=== PATIENT | female | born 1930 | race Caucasian/White ===

== ENCOUNTER 2017-10-24 02:37 | Inpatient (IN) | payer MEDICARE, MEDICAID ==
--- NOTE | 2017-10-24 03:40 | ED Physician Chart ---
ED Chief Complaint/HPI - Patient Information Date Seen:: 10/24/17 Time Seen:: 03:40 Chief Complaint:: Shortness of breath History of Present Illness:: 87 yo female with history of hypertension, CHF and aortic valve replacement, was brought from [facility] to ER due to shortness of breath for 2 hours. Nitroglycerin 2 puffs were given by paramedics. At ER, patient appeared to be weak with dry cough, tachypnea and SOB. Allergies:: Allergies Allergy/AdvReac Type Severity Reaction Status Date / Time No Known Allergies Allergy Verified 10/24/17 03:21 Vitals:: Vital Signs - 8 hr 10/24/17 02:40 Temp 97.0 F HR 120 RR 30 BP 167/94 O2 Sat % 98 ED Review of Systems - Review of Systems General/Constitutional: No fever, Weakness Skin: No bruising Head: No headache Eyes: No pain ENT: No nasal drainage Neck: No neck pain Cardio Vascular: Chest pain Pulmonary: SOB GI: No nausea, No vomiting Musculoskeletal: No bone or joint pain Neurological: No focal symptoms ED Past Medical History - Past Medical History Past Medical History: HTN, CHF, Other (mitral stenosis) Social History: Non Smoker, No Alcohol, No Drug Use Surgical History: other (aortic valve replacement) Family Medical History - Family Member Mother History Unknown: Yes ED Physical Exam - Physical Examination General/Constitutional: Awake, Alert Head: Atraumatic Eyes: PERRL Skin: No skin lesions ENMT: Nasal exam nl Neck: No nuchal rigidity Other Respiratory comments:: B/L lungs rhonchi Cardio Vascular: RRR, NL S1 S2 Other Cardio Vascular comments:: II/ systolic murmurs GI: No tenderness/rebounding/guarding Extremities: normal strength in all extremities Neuro/Psych: No focal deficits ED Labs/Radiology/EKG Results - Radiology Results Results: CXR: right lower lobe infiltrate and effusion ED Assessment - Assessment General Assessment: Right lower lobe pneumonia Leukocytosis Respiratory acidosis Dehydration CHF Assessment/Comments:: CBC, CMP, BNP, Trop I ABG, CXR, EKG Azithromycin IV Atrovent Neb Admit to ICU for further management ED Septic Shock - . Is Septic Shock (SBP<90, OR Lactate>4 mmol\L) present?: No - <6hrs of presentation: Vital Signs: Vital Signs - 8 hr 01/03/18 02:40 Temp 97.0 F HR 120 RR 30 BP 167/94 O2 Sat % 98 ED Reassessment (Disposition) - Reassessment Reassessment Condition:: Improved - Patient Disposition Discharge/Transfer:: Acute Care w/in this hosp Admitting Medical Physician:: Hilaria Delcid ED Discharge Plan - Patient Disposition Admit/Discharge/Transfer: Acute Care w/in this hosp Condition at Disposition: Stable
[2017-10-24 04:15] LABS: pH 7.28 (7.35-7.45)
[2017-10-24 04:17] LABS: ALLEN TEST Y
[2017-10-24 04:59] LABS: HEMATOCRIT 39.8 % (41.0-60); HEMOGLOBIN 13.3 gm/dL (12-16); MEAN CELL VOLUME 89.4 fl (81-100); MEAN CORPUSCULAR HGB CONC 33.5 pg (28.0-36.0); PLATELET COUNT 386 Th/cmm (150-400); RED BLOOD COUNT 4.45 Mil/cmm (3.80-5.20)
[2017-10-24 05:01] LABS: WHITE BLOOD COUNT 13.6 Th/cmm (4.8-10.8)
[2017-10-24 05:36] LABS: BAND NEUTROPHILE 5 % (0-10); LYMPHOCYTE 4 % (20-50); MONOCYTE 4 % (2-10); NEUTROPHILS 87 % (40-80); TOTAL CELLS COUNTED 100
[2017-10-24 05:43] LABS: ALB/GLOB RATIO 0.9 (1.0-1.8); ALBUMIN 3.8 gm/dL (3.7-5.3); ALKALINE PHOSPHATASE 34 U/L (34-104); ANION GAP 13.7 (7.0-16.0); BILIRUBIN,TOTAL 0.5 mg/dL (0.3-1.0); BUN - UREA NITROGEN 36 mg/dL (7-25); CARBON DIOXIDE 26.4 mEq/L (21.0-31.0); CHLORIDE 102 mEq/L (98-107); CREATININE - SERUM 0.9 mg/dL (0.6-1.2); GLUCOSE 138 mg/dL (70-105); POTASSIUM SERUM 4.1 mEq/L (3.5-5.1); SGOT 15 U/L (13-39); SGPT/ALT 8 U/L (7-52); SODIUM SERUM 138 mEq/L (136-145); TOTAL PROTEIN,SERUM 8.2 gm/dL (6.0-8.3)
[2017-10-24] MEDS ORDERED: Azithromycin 500 MG in Sodium Chloride 0.9% 250 ML IV ONE (07:00)
[2017-10-24] MEDS ORDERED: Albuterol/Ipratropium Neb 3 ML AERS HHN PRN (07:09)
[2017-10-24] MEDS: cefTRIAXone 1 GM in Sodium Chloride 0.9% 50 ML IV SCH (08:02)
[2017-10-24 08:05] LABS: INR 7.13 (0.5-1.4); PROTHROMBIN TIME (TEST) 82.3 SECONDS (9.5-11.5)
--- NOTE | 2017-10-24 08:22 | Diagnostic Imaging Report ---
Exam: Portable chest x-ray HISTORY: Shortness of breath. Findings: Portable examination of the chest at 0752 hours reviewed, no prior studies available comparison. The study demonstrates multiple metallic sutures status post restaurant thoracotomy. Mediastinal structures midline the heart is not enlarged. There is evidence for right lower lobe infiltrate superimposed effusion. Right hemidiaphragm is elevated. Clinical correlation recommended. IMPRESSION: Right lobe infiltrate and effusion, elevation right hemidiaphragm. Clinical correlation recommended. Follow-up examination recommended.
[2017-10-24] MEDS: Azithromycin 500 MG in Sodium Chloride 0.9% 250 ML IV SCH (10:13)
[2017-10-24 11:43] LABS: INR 6.34 (0.5-1.4); PROTHROMBIN TIME (TEST) 72.7 SECONDS (9.5-11.5)
--- NOTE | 2017-10-24 11:52 | History & Physical ---
ADMIT DATE: 10/24/2017 CHIEF COMPLAINT: Acute shortness of breath. HISTORY OF PRESENT ILLNESS: The patient is an 87-year-old female with long history of hypertension, congestive heart failure, severe aortic stenosis, resident of [facility], transferred to the Emergency Room with acute shortness of breath. On arrival, she was evaluated by the ER physician. Initial workup is significant for pneumonia, acute excerebration of CHF, acute respiratory failure. The patient was started on BiPAP, started on IV antibiotic, admitted to the ICU, resume her home medication. Pulmonary consultation and Cardiac consultation obtained. The patient denies any chest pain. PAST MEDICAL HISTORY: Significant for hypertension, CHF, aortic stenosis. PAST SURGICAL HISTORY: No recent surgery. ALLERGIES: None. MEDICATIONS: Follow admission reconciliation. SOCIAL HISTORY: No smoking, alcohol, or drugs. FAMILY HISTORY: Noncontributory. REVIEW OF SYSTEMS: RENAL SYSTEM: No history of chronic renal disorder. CARDIOVASCULAR SYSTEM: She has history of hypertension, CHF, and aortic stenosis. ENDOCRINE SYSTEM: No diabetes or thyroid problem. GASTROINTESTINAL SYSTEM: No upper or lower gastrointestinal bleed. NEUROLOGICAL SYSTEM: No seizure disorder. SKELETOMUSCULAR SYSTEM: No muscular dystrophy. HEMATOLOGICAL SYSTEM: . RESPIRATORY SYSTEM: She has pneumonia, acute respiratory failure. PHYSICAL EXAMINATION: GENERAL: She is awake, alert, and oriented. VITAL SIGNS: Temperature is 98, heart rate 88, blood pressure 124/70. HEENT: Normocephalic. Pupils reactive to light and accommodation. Sclerae clear. NECK: Supple. Negative for lymphadenopathy, JVD, or bruit. CHEST: Entry of air bilaterally diminished. HEART: S1 and S2 normal. ABDOMEN: Soft, bowel sounds positive. EXTREMITIES: No edema. NEUROLOGICAL: She is awake, alert, and oriented. No focal motor or sensory deficits. LABORATORY DATA: White blood cells 13.6, hemoglobin 13.3, hematocrit 39.8, and platelets 386. INR is 7.2. ASSESSMENT: 1. Pneumonia. 2. Acute exacerbation of congestive heart failure. 3. Acute respiratory failure. 4. Severe aortic valve stenosis. PLAN: The patient is admitted to the hospital under Dr. Delcid's service, started on BiPAP. The patient will resume her medication. Dr. Judd Love and Dr. Cantor consulted on the case. The patient is a full code. CBC, CMP, PT, INR in a.m. We hold the Coumadin. JOB# [id number]
[2017-10-24 12:39] LABS: URINE MICROSCOPIC INDICATED? YES; URINE SOURCE CATH
[2017-10-24 12:46] LABS: URINE BILIRUBIN NEGATIVE (NEGATIVE); URINE BLOOD SMALL (NEGATIVE); URINE COLOR YELLOW; URINE GLUCOSE (UA) NEGATIVE (NEGATIVE); URINE KETONE NEGATIVE (NEGATIVE); URINE LEUKOCYTE ESTERASE NEGATIVE (NEGATIVE); URINE NITRATE NEGATIVE (NEGATIVE); URINE PH 5.5 (4.6 - 8.0); URINE PROTEIN NEGATIVE (NEGATIVE); URINE UROBILINOGEN 0.2 E.U./dL (0.2 - 1.0)
[2017-10-24 12:47] LABS: URINE CLARITY CLEAR (CLEAR)
[2017-10-24 12:50] LABS: URINE AMORPHOUS SEDIMENT FEW URATES (NONE SEEN); URINE BACTERIA FEW /hpf (NONE SEEN); URINE EPITHELIAL CELLS FEW /lpf (FEW); URINE WBC 0-2 /hpf (0-5)
[2017-10-24] MEDS ORDERED: Albuterol/Ipratropium Neb 3 ML AERS HHN ONE (13:55)
[2017-10-24 16:48] VITALS: BP 123/66
[2017-10-24] MEDS: Metolazone 5 MG TAB PO SCH (18:23)
[2017-10-24] MEDS: Potassium Chloride 10 mEq ER Tab PO SCH (18:23)
[2017-10-24] MEDS: Nitroglycerin 0.1 mg/hr Tdm TD SCH (18:42)
[2017-10-25] MEDS ORDERED: Diltiazem 5 mg/mL 5mL Vial IVP PRN (00:26)
[2017-10-25] MEDS ORDERED: Diltiazem 5 mg/mL 5mL Vial IVP ONE (00:33)
[2017-10-25] MEDS: Diltiazem 5 mg/mL 5mL Vial IVP PRN ×2 (00:33→05:14)
[2017-10-25] MEDS: cefTRIAXone 1 GM in Sodium Chloride 0.9% 50 ML IV SCH (06:24)
[2017-10-25] MEDS: Azithromycin 500 MG in Sodium Chloride 0.9% 250 ML IV SCH (07:02)
[2017-10-25 07:04] LABS: HEMOGLOBIN 11.7 gm/dL (12-16); MEAN CELL VOLUME 89.4 fl (81-100); MEAN CORPUSCULAR HEMOGLOBIN 30.3 pg (27.0-31.0); MEAN CORPUSCULAR HGB CONC 33.9 pg (28.0-36.0); PLATELET COUNT 351 Th/cmm (150-400); RED BLOOD COUNT 3.87 Mil/cmm (3.80-5.20); RED CELL DISTRIBUTION WIDTH 15.2 % (11.5-20.0)
[2017-10-25 07:07] LABS: HEMATOCRIT 34.6 % (41.0-60); WHITE BLOOD COUNT 8.2 Th/cmm (4.8-10.8)
[2017-10-25 07:29] LABS: ALB/GLOB RATIO 0.9 (1.0-1.8); ALBUMIN 3.7 gm/dL (3.7-5.3); ALKALINE PHOSPHATASE 33 U/L (34-104); ANION GAP 12.6 (7.0-16.0); BILIRUBIN,TOTAL 0.5 mg/dL (0.3-1.0); BUN - UREA NITROGEN 55 mg/dL (7-25); CALCIUM SERUM 9.8 mg/dL (8.6-10.3); CARBON DIOXIDE 30.7 mEq/L (21.0-31.0); CHLORIDE 99 mEq/L (98-107); CREATININE - SERUM 0.8 mg/dL (0.6-1.2); GLUCOSE 176 mg/dL (70-105); POTASSIUM SERUM 3.3 mEq/L (3.5-5.1); SGOT 17 U/L (13-39); SGPT/ALT 11 U/L (7-52); SODIUM SERUM 139 mEq/L (136-145); TOTAL PROTEIN,SERUM 7.9 gm/dL (6.0-8.3)
[2017-10-25 07:30] LABS: PROTHROMBIN TIME (TEST) 45.1 SECONDS (9.5-11.5)
[2017-10-25 08:21] LABS: INR 4.03 (0.5-1.4)
[2017-10-25] MEDS: Multivitamin Tab PO SCH (08:33)
[2017-10-25] MEDS: Metolazone 5 MG TAB PO SCH (08:33)
[2017-10-25] MEDS: Nitroglycerin 0.1 mg/hr Tdm TD SCH (08:34)
[2017-10-25] MEDS: Potassium Chloride 10 mEq ER Tab PO SCH (08:38)
[2017-10-25 08:44] LABS: TOTAL CELLS COUNTED 100
[2017-10-25 08:45] LABS: LYMPHOCYTE 6 % (20-50); MONOCYTE 5 % (2-10); NEUTROPHILS 89 % (40-80); PLATELET ESTIMATE ADEQUATE (NORMAL)
[2017-10-25] MEDS ORDERED: Potassium Chloride 20 mEq ER Tab PO ONE ×2 (12:19→12:42)
[2017-10-25] MEDS: Albuterol/Ipratropium Neb 3 ML AERS HHN PRN (19:35)
--- NOTE | 2017-10-25 22:18 | Internal Medicine Prog Note ---
Internal Medicine Subjective - Subjective Service Date: 10/25/17 Patient seen and examined:: with staff Patient is:: asleep, in bed Patient Complaints of:: congestion Per staff patient has:: no adverse event Internal Medicine Objective - Results Result Diagrams: 10/25/17 06:16 10/25/17 06:16 Recent Labs: Laboratory Last Values WBC 8.2 Th/cmm (4.8-10.8) D 10/25/17 06:16 RBC 3.87 Mil/cmm (3.80-5.20) 10/25/17 06:16 Hgb 11.7 gm/dL (12-16) L 10/25/17 06:16 Hct 34.6 % (41.0-60) L D 10/25/17 06:16 MCV 89.4 fl (81-100) 10/25/17 06:16 MCH 30.3 pg (27.0-31.0) 10/25/17 06:16 MCHC Differential 33.9 pg (28.0-36.0) 10/25/17 06:16 RDW 15.2 % (11.5-20.0) 10/25/17 06:16 Plt Count 351 Th/cmm (150-400) 10/25/17 06:16 MPV 9.0 fl 10/25/17 06:16 Band Neutrophils % 5 % (0-10) 10/24/17 04:30 Neutrophils (Manual) 89 % (40-80) H 10/25/17 06:16 Lymphocytes 6 % (20-50) L 10/25/17 06:16 Monocytes 5 % (2-10) 10/25/17 06:16 Platelet Estimate ADEQUATE (NORMAL) 10/25/17 06:16 PT 45.1 SECONDS (9.5-11.5) H 10/25/17 06:16 INR 4.03 (0.5-1.4) H* D 10/25/17 06:16 PTT (Actin FS) 47.8 SECONDS (26.0-38.0) H 10/24/17 10:45 Specimen Source arterial 10/24/17 03:58 Sample Site Left Radial 10/24/17 03:58 pH 7.28 (7.35-7.45) L 10/24/17 03:58 pCO2 64.0 mmHg (35.0-45.0) H* 10/24/17 03:58 pO2 250.0 mmHg (80.0-100.0) H 10/24/17 03:58 HCO3 26.0 mEq/L (20.0-26.0) 10/24/17 03:58 Base Excess 2.0 mEq/L (-3.0-3.0) 10/24/17 03:58 O2 Saturation 100.0 % (92.0-100.0) 10/24/17 03:58 Jerry Test Y 10/24/17 03:58 Vent Rate N/A 10/24/17 03:58 Inspired O2 100 10/24/17 03:58 Tidal Volume N/A 10/24/17 03:58 PEEP N/A 10/24/17 03:58 Pressure (ins/psv/peep) N/A 10/24/17 03:58 Critical Value O.LAUREN 10/24/17 03:58 Sodium 139 mEq/L (136-145) 10/25/17 06:16 Potassium 3.3 mEq/L (3.5-5.1) L 10/25/17 06:16 Chloride 99 mEq/L (98-107) 10/25/17 06:16 Carbon Dioxide 30.7 mEq/L (21.0-31.0) 10/25/17 06:16 Anion Gap 12.6 (7.0-16.0) 10/25/17 06:16 BUN 55 mg/dL (7-25) H 10/25/17 06:16 Creatinine 0.8 mg/dL (0.6-1.2) 10/25/17 06:16 Est GFR ( Amer) TNP 10/25/17 06:16 Est GFR (Non-Af Amer) TNP 10/25/17 06:16 BUN/Creatinine Ratio 68.8 10/25/17 06:16 Glucose 176 mg/dL (70-105) H 10/25/17 06:16 Whole Bld Lactic Acid 1.95 mmol/L (0.60-1.99) 10/24/17 04:30 Calcium 9.8 mg/dL (8.6-10.3) 10/25/17 06:16 Total Bilirubin 0.5 mg/dL (0.3-1.0) 10/25/17 06:16 AST 17 U/L (13-39) 10/25/17 06:16 ALT 11 U/L (7-52) 10/25/17 06:16 Alkaline Phosphatase 33 U/L (34-104) L 10/25/17 06:16 Troponin I 0.19 ng/mL (0.01-0.05) H* 10/24/17 04:30 B-Natriuretic Peptide 3350.0 pg/mL (5.0-100.0) H 10/24/17 04:30 Total Protein 7.9 gm/dL (6.0-8.3) 10/25/17 06:16 Albumin 3.7 gm/dL (3.7-5.3) 10/25/17 06:16 Globulin 4.2 gm/dL 10/25/17 06:16 Albumin/Globulin Ratio 0.9 (1.0-1.8) L 10/25/17 06:16 Urine Source CATH 10/24/17 12:05 Urine Color YELLOW 10/24/17 12:05 Urine Clarity CLEAR (CLEAR) 10/24/17 12:05 Urine pH 5.5 (4.6 - 8.0) 10/24/17 12:05 Ur Specific [place] 1.025 (1.005-1.030) 10/24/17 12:05 Urine Protein NEGATIVE mg/dL (NEGATIVE) 10/24/17 12:05 Urine Glucose (UA) NEGATIVE mg/dL (NEGATIVE) 10/24/17 12:05 Urine Ketones NEGATIVE mg/dL (NEGATIVE) 10/24/17 12:05 Urine Blood SMALL (NEGATIVE) H 10/24/17 12:05 Urine Nitrate NEGATIVE (NEGATIVE) 10/24/17 12:05 Urine Bilirubin NEGATIVE (NEGATIVE) 10/24/17 12:05 Urine Urobilinogen 0.2 E.U./dL (0.2 - 1.0) 10/24/17 12:05 Ur Leukocyte Esterase NEGATIVE (NEGATIVE) 10/24/17 12:05 Urine RBC 2-5 /hpf (0-5) 10/24/17 12:05 Urine WBC 0-2 /hpf (0-5) 10/24/17 12:05 Ur Epithelial Cells FEW /lpf (FEW) 10/24/17 12:05 Amorphous Sediment FEW URATES (NONE SEEN) 10/24/17 12:05 Urine Bacteria FEW /hpf (NONE SEEN) 10/24/17 12:05 - Physical Exam Vitals and I&O: Vital Signs Temp 95.6 F 10/25/17 20:00 Pulse 67 10/25/17 21:00 Resp 26 10/25/17 21:00 BP 127/63 10/25/17 21:00 Pulse Ox 100 10/25/17 21:00 Intake & Output 10/25/17 10/25/17 10/26/17 06:59 18:59 06:59 Intake Total 440 490 Output Total 800 1000 Balance -360 -510 Weight (lbs) 50.258 kg 49.668 kg Intake: Intake, IV Amount 50 250 Azithromycin 500 mg In 250 Sodium Chloride 0.9% 250 ml @ 250 mls/hr IV Q24HR [facility] Rx#:[id number] cefTRIAXone 1 gm In 50 Sodium Chloride 0.9% 50 ml @ 100 mls/hr IV Q24HR [facility] Rx#:[id number] Oral 390 240 Output: Urine 800 1000 Active Medications: Current Medications Acetaminophen (Tylenol) 650 mg PO Q6HR PRN PRN Reason: Pain or Fever >101 Stop: 12/23/17 09:54 Last Admin: 10/25/17 15:14 Dose: 650 mg Albuterol/Ipratropium (Duoneb Neb) 3 ml HHN Q4HRT PRN PRN Reason: Shortness of Breath Stop: 12/23/17 07:08 Last Admin: 10/25/17 19:35 Dose: 3 ml Calcium Carbonate (Tums) 500 mg PO DAILY [facility] Stop: 12/24/17 08:59 Last Admin: 10/25/17 08:33 Dose: 500 mg Cholecalciferol (Vitamin D3) 1,000 iu PO DAILY [facility] Stop: 12/24/17 08:59 Last Admin: 10/25/17 08:33 Dose: 1,000 iu Diltiazem HCl (Cardizem) 20 mg IVP Q4H PRN PRN Reason: HR above 110 Stop: 12/24/17 00:29 Last Admin: 10/25/17 05:14 Dose: 20 mg Docusate Sodium (Colace) 100 mg PO DAILY [facility] Stop: 12/24/17 08:59 Last Admin: 10/25/17 08:33 Dose: 100 mg Donepezil HCl (Aricept) 10 mg PO HS [facility] Stop: 12/23/17 20:59 Last Admin: 10/25/17 21:04 Dose: 10 mg Furosemide (Lasix) 40 mg IVP BID [facility] Stop: 12/24/17 16:59 Last Admin: 10/25/17 17:02 Dose: 40 mg Azithromycin 500 mg/ Sodium (Chloride) 250 mls @ 250 mls/hr IV Q24HR [facility] Stop: 12/23/17 07:14 Last Infusion: 10/25/17 08:02 Dose: Infused Ceftriaxone Sodium 1 gm/ (Sodium Chloride) 50 mls @ 100 mls/hr IV Q24HR [facility] Stop: 12/23/17 07:14 Last Infusion: 10/25/17 06:54 Dose: Infused Metolazone (Zaroxolyn) 5 mg PO DAILY [facility] Stop: 12/23/17 15:59 Last Admin: 10/25/17 08:33 Dose: 5 mg Mirtazapine (Remeron) 7.5 mg PO HS [facility] PRN Reason: Protocol Stop: 12/23/17 20:59 Last Admin: 10/25/17 21:04 Dose: 7.5 mg Multivitamins/Vitamin C (Theragran) 1 tab PO DAILY [facility] Stop: 12/24/17 08:59 Last Admin: 10/25/17 08:33 Dose: 1 tab Nitroglycerin (Transderm-Nitro) 1 patch TD DAILY [facility] Stop: 12/23/17 15:59 Last Admin: 10/25/17 08:34 Dose: 1 patch Potassium Chloride (Klor-Con) 10 meq PO DAILY [facility] Stop: 12/23/17 15:59 Last Admin: 10/25/17 08:38 Dose: 10 meq Sotalol HCl (Betapace) 40 mg PO BID [facility] Stop: 12/23/17 16:59 Last Admin: 10/25/17 17:01 Dose: 40 mg General: weak, thin HEENT: NC/AT, PERRLA, EOMI, anicteric sclerae, throat clear Neck: + JVD Lungs: CTAB Abdomen: soft, non-tender, non-distended Extremities: clear Neurological: no change - Procedures Procedures: Procedures Procedure Code Date ASSISTANCE WITH RESPIRATORY VENTILATION, <24 HRS, CPAP [id number] 10/24/17 POS AIRWAY PRESSURE CPAP 56892 10/24/17 Internal Medicine Assmt/Plan - Assessment Assessment: 1.ACUTE EXACERBATION OF CHF' 2.PNEUMONIA. 3.SEVER AORTIC VALVE STENOSIS. - Plan Plan: CONTINUE ON CURRENT MEDICATION AND DIET.I CALLED FOR TRANSFER. Nutritional Asmnt/Malnutr-PDOC - Dietary Evaluation Malnutrition Findings (Please click <Entered> for more info): Nutritional Asmnt/Malnutrition Start: 10/25/17 15: 34 Text: Status: Complete Freq: Document 10/25/17 15:34 KELLI (Rec: 10/25/17 15:45 HEN [email or web address]) Nutritional Asmnt/Malnutrition Patient General Information Nutritional Screening High Risk Consult Diagnosis acute CHF, PNA Pertinent Medical Hx/Surgical Hx HTN, CHF, aortic stenosis Subjective Information Consult received for poor appetite. Pt seen lying in bed , awake, does not speak Bulgarian. Family at bedside, reported pt has had poor appetite for a week, consumed few bites of breakfast this morning, denied chewing problem, pt used to drink Ensure daily. Per notes, PO intake 25% of dinner 10/25. Pt is on Remeron noted. Current Diet Order/ Nutrition Support Cardiac Pertinent Medications Tums, azithromycin, vitamin D3 , colace, lasix, remeron, theragran, kcl Pertinent Labs 10/25 na 139, K 3.3, Cl 99, BUN 55, Cr 0.8, Glucose 176, Alb 3 .7 Nutritional Hx/Data Height 1.52 m Height (Calculated Centimeters) 152.4 Current Weight (lbs) 50.258 kg Weight (Calculated Kilograms) 50.3 Weight (Calculated Grams) 78983.0 Bow Body Weight 100 % Bow Body Weight 111 Body Mass Index (BMI) 21.6 Recent Weight Change No Weight Status Approriate GI Symptoms GI Symptoms None Last BM no record Difficult in: None Usual diet at home see subjective information Skin Integrity/Comment: rash to perinuem, buttocks and lower back edema Estimated Nutritional Goals BEE in Kcals: Using Current wt Calories/Kcals/Kg 25-30 Kcals Calculated 0723-0579 Protein: Using Current wt Protein g/k-1.2 Protein Calculated 50-60 Fluid: ml [id number] or per MD d/t CHF Nutritional Problem 1. Problem Problem inadequate food intake Etiology poor appetite Signs/Symptoms: PO intake <25% Malnutrition Alert Protein-Calorie Malnutrition N/A Is there a minimum of two criteria No selected? Query Text:Check all the applicable criteria. A minimum of two criteria are recommended for diagnosis of either severe or non-severe malnutrition. Intervention/Recommendation Comments 1. Recommend Boost BID to increased nutrition intake. Family would like to try this supplement. RN notified. 2. Monitor PO intake, wt, labs and skin integrity 3. F/U as high risk in 2-3 days, 10/27-10/28 Expected Outcomes/Goals Expected Outcomes/Goals 1. PO intake to meet at least 75% of nutritional needs. 2. Wt stability, skin to remain intact, labs to approach WNL.
--- NOTE | 2017-10-25 23:21 | Consultation ---
DATE OF CONSULTATION: 10/25/[address] Delcid for this consultation. HISTORY OF PRESENT ILLNESS: This is an 87-year-old female who apparently has history of aortic valve replacement, history of mitral valve stenosis and is being treated as an outpatient for cough, congestion, and possible bronchitis and pneumonia. She was getting more short of breath and admitted for treatment and management of her pneumonia, in no apparent distress. She has history of hypertension and CHF. PAST MEDICAL HISTORY: As above. SOCIAL HISTORY: No smoking or drinking. PHYSICAL EXAMINATION: GENERAL: Awake, alert, not in acute distress. VITAL SIGNS: Temperature is 97.2, pulse 82, respirations are 24, blood pressure 134/67, and saturation is 95% on 4 liters oxygen. HEENT: Atraumatic and normocephalic. Pupils are equal to light and accommodation. Ears, nose and throat normal. NECK: Supple. No JVD. CHEST: There are decreased breath sounds right base, few rhonchi bilaterally. HEART: Regular rhythm. ABDOMEN: Soft. EXTREMITIES: No edema. Lower extremities are cold and mottled. LABORATORY DATA: Chest x-ray, right lower lobe infiltrate and elevated right hemidiaphragm. WBCs are 8.2 down from 13.6, hemoglobin 11.7. INR is 4.0. Sodium 139, potassium 3.3, BUN is 55, and creatinine 0.8. IMPRESSION: This is an 87-year-old female with, 1. Pneumonia. 2. Hypoxemia. 3. Valvular heart disease. 4. Seizure versus rule out any aortic aneurysm thoracic or specifically abdominal causing the lower extremity symptoms. Thank you very much Dr. Delcid. I have discussed with family at bedside in details. JOB# [id number] [email or web address]
[2017-10-26 05:56] LABS: BUN - UREA NITROGEN 61 mg/dL (7-25); CALCIUM SERUM 9.9 mg/dL (8.6-10.3); CARBON DIOXIDE 37.3 mEq/L (21.0-31.0); CHLORIDE 98 mEq/L (98-107); CREATININE - SERUM 0.7 mg/dL (0.6-1.2); GLUCOSE 141 mg/dL (70-105); POTASSIUM SERUM 3.3 mEq/L (3.5-5.1); SODIUM SERUM 142 mEq/L (136-145)
[2017-10-26] MEDS: cefTRIAXone 1 GM in Sodium Chloride 0.9% 50 ML IV SCH (06:21)
[2017-10-26] MEDS: Azithromycin 500 MG in Sodium Chloride 0.9% 250 ML IV SCH (07:06)
--- NOTE | 2017-10-26 08:06 | Diagnostic Imaging Report ---
CT Chest without IV contrast HISTORY: Aneurysm COMPARISON: Chest x-ray on 10/24/2017. Technique: Axial images were obtained from the base of the neck to the upper abdomen without IV contrast. Reconstructions were made. Total DLP 188 CTD I 5.2 Findings: Assessment of the mediastinum is limited due to lack of IV contrast. The ascending aorta is ectatic measuring up to 3.5 cm. No evidence of an aneurysm. No evidence of mediastinal lymphadenopathy. Mild cardiomegaly is noted with atherosclerotic vascular disease and mitral valve calcifications. There is also evidence of prior median sternotomy. There is evidence of prior aortic valve repair. No pericardial effusion identified. Evaluation of the lungs demonstrates evidence of right lower lobe collapse with endobronchial filling within these regions. Small right effusion is noted. A few adjacent nodular infiltrates are noted. Additional mild hypoventilatory atelectatic changes of the lungs are seen. Left lower lobe nodular infiltrates are also noted measuring up to 6 mm. Advanced degenerative changes of the spine are noted. IMPRESSION: Right lower lobe collapse and small right effusion. There is also filling of the right lower lobe bronchi. This may be due to underlying secretions, however, other endobronchial lesions cannot be excluded. Clinical correlation and follow-up is recommended. Additional nodular infiltrates along the lung bases, left greater than right, which favor infectious process , however, short-term follow-up is recommended to ensure resolution and rule out neoplastic process The ascending aorta measures up to 3.5 cm. No evidence of an aortic aneurysm. Diffuse atherosclerotic vascular disease is noted. Evidence of prior median sternotomy. There is also evidence of previous aortic valve repair.
--- NOTE | 2017-10-26 08:09 | Diagnostic Imaging Report ---
CT scan abdomen and pelvis without intravenous contrast HISTORY: Pain, aortic aneurysm Total DLP equals 384 CTDI equals 8.5 Axial sections were obtained from the xiphoid process down to the pubic symphysis. See separate earlier chest CT report for description of intrathoracic pathology. The overall exam is somewhat limited due to patient motion. The liver exhibits a homogeneous parenchyma. No focal lesions. The spleen appears normal. Intraluminal density seen within the gallbladder consistent with cholelithiasis. Question. Cholecystic fluid. Findings consistent with bilateral renal calculi are noted. The largest in the right kidney measures approximately 6 mm. The largest within the left kidney measures approximately 8 mm. No hydronephrosis. There is an approximate 2.2 cm well-circumscribed hypodense right adrenal lesion. Density measurements are consistent with a benign etiology. Evaluation of the pelvis is limited due to artifact associated with bilateral hip arthroplasties. No obvious abnormal soft tissue masses. No abnormal fluid collections. There is a mild to moderately distended stool-filled rectum. No associated bowel dilatation. Atherosclerotic vascular calcification noted within the aorta. However, no aneurysm is seen. Degenerative changes noted throughout the spine. IMPRESSION: 1. Limited exam due to patient motion 2. Cholelithiasis. Questionable pericholecystic fluid. 3. Right adrenal lesion. Density measurements are consistent with benign etiology. 4. Bilateral renal calculi. No hydronephrosis 5. Atherosclerotic vascular changes. However, no aortic aneurysm is identified. 6. Bilateral hip replacements 7. Mildly distended stool-filled rectum. Findings may be associated with a fecal impaction.
[2017-10-26] MEDS ORDERED: Albuterol/Ipratropium Neb 3 ML AERS HHN ONE (08:52)
[2017-10-26] MEDS: Albuterol/Ipratropium Neb 3 ML AERS HHN PRN ×2 (08:53→18:09)
[2017-10-26] MEDS: Metolazone 5 MG TAB PO SCH (08:53)
[2017-10-26] MEDS: Multivitamin Tab PO SCH (08:54)
[2017-10-26] MEDS: Nitroglycerin 0.1 mg/hr Tdm TD SCH ×2 (08:54→09:01)
[2017-10-26] MEDS: Potassium Chloride 10 mEq ER Tab PO SCH (08:55)
[2017-10-26] MEDS: Diltiazem 5 mg/mL 5mL Vial IVP PRN ×2 (10:04→17:16)
--- NOTE | 2017-10-26 13:10 | Internal Medicine Prog Note ---
Internal Medicine Subjective - Subjective Service Date: 10/26/17 Patient seen and examined:: with staff (she feels better,less sob) Patient is:: asleep, in bed Patient Complaints of:: congestion Per staff patient has:: no adverse event Internal Medicine Objective - Results Result Diagrams: 10/25/17 06:16 10/26/17 05:03 Recent Labs: Laboratory Last Values WBC 8.2 Th/cmm (4.8-10.8) D 10/25/17 06:16 RBC 3.87 Mil/cmm (3.80-5.20) 10/25/17 06:16 Hgb 11.7 gm/dL (12-16) L 10/25/17 06:16 Hct 34.6 % (41.0-60) L D 10/25/17 06:16 MCV 89.4 fl (81-100) 10/25/17 06:16 MCH 30.3 pg (27.0-31.0) 10/25/17 06:16 MCHC Differential 33.9 pg (28.0-36.0) 10/25/17 06:16 RDW 15.2 % (11.5-20.0) 10/25/17 06:16 Plt Count 351 Th/cmm (150-400) 10/25/17 06:16 MPV 9.0 fl 10/25/17 06:16 Band Neutrophils % 5 % (0-10) 10/24/17 04:30 Neutrophils (Manual) 89 % (40-80) H 10/25/17 06:16 Lymphocytes 6 % (20-50) L 10/25/17 06:16 Monocytes 5 % (2-10) 10/25/17 06:16 Platelet Estimate ADEQUATE (NORMAL) 10/25/17 06:16 PT 45.1 SECONDS (9.5-11.5) H 10/25/17 06:16 INR 4.03 (0.5-1.4) H* D 10/25/17 06:16 PTT (Actin FS) 47.8 SECONDS (26.0-38.0) H 10/24/17 10:45 Specimen Source arterial 10/24/17 03:58 Sample Site Left Radial 10/24/17 03:58 pH 7.28 (7.35-7.45) L 10/24/17 03:58 pCO2 64.0 mmHg (35.0-45.0) H* 10/24/17 03:58 pO2 250.0 mmHg (80.0-100.0) H 10/24/17 03:58 HCO3 26.0 mEq/L (20.0-26.0) 10/24/17 03:58 Base Excess 2.0 mEq/L (-3.0-3.0) 10/24/17 03:58 O2 Saturation 100.0 % (92.0-100.0) 10/24/17 03:58 Jerry Test Y 10/24/17 03:58 Vent Rate N/A 10/24/17 03:58 Inspired O2 100 10/24/17 03:58 Tidal Volume N/A 10/24/17 03:58 PEEP N/A 10/24/17 03:58 Pressure (ins/psv/peep) N/A 10/24/17 03:58 Critical Value O.LAUREN 10/24/17 03:58 Sodium 142 mEq/L (136-145) 10/26/17 05:03 Potassium 3.3 mEq/L (3.5-5.1) L 10/26/17 05:03 Chloride 98 mEq/L (98-107) 10/26/17 05:03 Carbon Dioxide 37.3 mEq/L (21.0-31.0) H 10/26/17 05:03 Anion Gap 10.0 (7.0-16.0) 10/26/17 05:03 BUN 61 mg/dL (7-25) H 10/26/17 05:03 Creatinine 0.7 mg/dL (0.6-1.2) 10/26/17 05:03 Est GFR ( Amer) TNP 10/26/17 05:03 Est GFR (Non-Af Amer) TNP 10/26/17 05:03 BUN/Creatinine Ratio 87.1 10/26/17 05:03 Glucose 141 mg/dL (70-105) H 10/26/17 05:03 Whole Bld Lactic Acid 1.95 mmol/L (0.60-1.99) 10/24/17 04:30 Calcium 9.9 mg/dL (8.6-10.3) 10/26/17 05:03 Total Bilirubin 0.5 mg/dL (0.3-1.0) 10/25/17 06:16 AST 17 U/L (13-39) 10/25/17 06:16 ALT 11 U/L (7-52) 10/25/17 06:16 Alkaline Phosphatase 33 U/L (34-104) L 10/25/17 06:16 Troponin I 0.19 ng/mL (0.01-0.05) H* 10/24/17 04:30 B-Natriuretic Peptide 3030.0 pg/mL (5.0-100.0) H 10/26/17 05:03 Total Protein 7.9 gm/dL (6.0-8.3) 10/25/17 06:16 Albumin 3.7 gm/dL (3.7-5.3) 10/25/17 06:16 Globulin 4.2 gm/dL 10/25/17 06:16 Albumin/Globulin Ratio 0.9 (1.0-1.8) L 10/25/17 06:16 Urine Source CATH 10/24/17 12:05 Urine Color YELLOW 10/24/17 12:05 Urine Clarity CLEAR (CLEAR) 10/24/17 12:05 Urine pH 5.5 (4.6 - 8.0) 10/24/17 12:05 Ur Specific [place] 1.025 (1.005-1.030) 10/24/17 12:05 Urine Protein NEGATIVE mg/dL (NEGATIVE) 10/24/17 12:05 Urine Glucose (UA) NEGATIVE mg/dL (NEGATIVE) 10/24/17 12:05 Urine Ketones NEGATIVE mg/dL (NEGATIVE) 10/24/17 12:05 Urine Blood SMALL (NEGATIVE) H 10/24/17 12:05 Urine Nitrate NEGATIVE (NEGATIVE) 10/24/17 12:05 Urine Bilirubin NEGATIVE (NEGATIVE) 10/24/17 12:05 Urine Urobilinogen 0.2 E.U./dL (0.2 - 1.0) 10/24/17 12:05 Ur Leukocyte Esterase NEGATIVE (NEGATIVE) 10/24/17 12:05 Urine RBC 2-5 /hpf (0-5) 10/24/17 12:05 Urine WBC 0-2 /hpf (0-5) 10/24/17 12:05 Ur Epithelial Cells FEW /lpf (FEW) 10/24/17 12:05 Amorphous Sediment FEW URATES (NONE SEEN) 10/24/17 12:05 Urine Bacteria FEW /hpf (NONE SEEN) 10/24/17 12:05 - Physical Exam Vitals and I&O: Vital Signs Temp 96.1 F 10/26/17 12:00 Pulse 63 10/26/17 12:00 Resp 24 10/26/17 12:00 BP 99/69 10/26/17 11:00 Pulse Ox 99 10/26/17 11:00 Intake & Output 10/25/17 10/26/17 10/26/17 18:59 06:59 18:59 Intake Total 490 100 Output Total 1000 440 Balance -510 -340 Weight (lbs) 49.668 kg 49.26 kg Intake: Intake, IV Amount 250 50 Azithromycin 500 mg In 250 Sodium Chloride 0.9% 250 ml @ 250 mls/hr IV Q24HR [facility] Rx#:[id number] cefTRIAXone 1 gm In 50 Sodium Chloride 0.9% 50 ml @ 100 mls/hr IV Q24HR [facility] Rx#:[id number] Oral 240 50 Output: Urine 1000 440 Other: # Bowel Movements 0 Active Medications: Current Medications Acetaminophen (Tylenol) 650 mg PO Q6HR PRN PRN Reason: Pain or Fever >101 Stop: 12/23/17 09:54 Last Admin: 10/26/17 08:58 Dose: 650 mg Albuterol/Ipratropium (Duoneb Neb) 3 ml HHN Q4HRT PRN PRN Reason: Shortness of Breath Stop: 12/23/17 07:08 Last Admin: 10/26/17 08:53 Dose: 3 ml Alprazolam (Xanax) 0.25 mg PO BID [facility] PRN Reason: Protocol Stop: 12/25/17 16:59 Calcium Carbonate (Tums) 500 mg PO DAILY [facility] Stop: 12/24/17 08:59 Last Admin: 10/26/17 08:52 Dose: 500 mg Cholecalciferol (Vitamin D3) 1,000 iu PO DAILY [facility] Stop: 12/24/17 08:59 Last Admin: 10/26/17 08:52 Dose: 1,000 iu Diltiazem HCl (Cardizem) 20 mg IVP Q4H PRN PRN Reason: HR above 110 Stop: 12/24/17 00:29 Last Admin: 10/26/17 10:04 Dose: 20 mg Docusate Sodium (Colace) 100 mg PO DAILY [facility] Stop: 12/24/17 08:59 Last Admin: 10/26/17 08:52 Dose: 100 mg Donepezil HCl (Aricept) 10 mg PO HS [facility] Stop: 12/23/17 20:59 Last Admin: 10/25/17 21:04 Dose: 10 mg Furosemide (Lasix) 40 mg IVP BID [facility] Stop: 12/24/17 16:59 Last Admin: 10/26/17 08:52 Dose: 40 mg Azithromycin 500 mg/ Sodium (Chloride) 250 mls @ 250 mls/hr IV Q24HR [facility] Stop: 12/23/17 07:14 Last Admin: 10/26/17 07:06 Dose: 250 mls/hr Ceftriaxone Sodium 1 gm/ (Sodium Chloride) 50 mls @ 100 mls/hr IV Q24HR [facility] Stop: 12/23/17 07:14 Last Infusion: 10/26/17 06:51 Dose: Infused Metolazone (Zaroxolyn) 5 mg PO DAILY [facility] Stop: 12/23/17 15:59 Last Admin: 10/26/17 08:53 Dose: 5 mg Mirtazapine (Remeron) 7.[address] [facility] PRN Reason: Protocol Stop: 12/23/17 20:59 Last Admin: 10/25/17 21:04 Dose: 7.5 mg Multivitamins/Vitamin C (Theragran) 1 tab PO DAILY [facility] Stop: 12/24/17 08:59 Last Admin: 10/26/17 08:54 Dose: 1 tab Nitroglycerin (Transderm-Nitro) 1 patch TD DAILY [facility] Stop: 12/23/17 15:59 Last Admin: 10/26/17 09:01 Dose: 1 patch Potassium Chloride (Klor-Con) 10 meq PO DAILY [facility] Stop: 12/23/17 15:59 Last Admin: 10/26/17 08:55 Dose: 10 meq Sotalol HCl (Betapace) 40 mg PO BID [facility] Stop: 12/23/17 16:59 Last Admin: 10/26/17 08:55 Dose: 40 mg General: weak, thin HEENT: NC/AT, PERRLA, EOMI, anicteric sclerae, throat clear Neck: + JVD Lungs: CTAB Abdomen: soft, non-tender, non-distended Extremities: clear Neurological: no change - Procedures Procedures: Procedures Procedure Code Date ASSISTANCE WITH RESPIRATORY VENTILATION, <24 HRS, CPAP [id number] 10/24/17 POS AIRWAY PRESSURE CPAP 45264 10/24/17 Internal Medicine Assmt/Plan - Assessment Assessment: 1.ACUTE EXACERBATION OF CHF' 2.PNEUMONIA. 3.SEVER AORTIC VALVE STENOSIS. - Plan Plan: CONTINUE ON CURRENT MEDICATION AND DIET.she can be transferred to by acls if bed is available. Nutritional Asmnt/Malnutr-PDOC - Dietary Evaluation Malnutrition Findings (Please click <Entered> for more info): Nutritional Asmnt/Malnutrition Start: 10/25/17 15: 34 Text: Status: Complete Freq: Document 10/25/17 15:34 ALYSON (Rec: 10/25/17 15:45 ALYSON [id number]) Nutritional Asmnt/Malnutrition Patient General Information Nutritional Screening High Risk Consult Diagnosis acute CHF, PNA Pertinent Medical Hx/Surgical Hx HTN, CHF, aortic stenosis Subjective Information Consult received for poor appetite. Pt seen lying in bed , awake, does not speak Pashto. Family at bedside, reported pt has had poor appetite for a week, consumed few bites of breakfast this morning, denied chewing problem, pt used to drink Ensure daily. Per notes, PO intake 25% of dinner 10/25. Pt is on Remeron noted. Current Diet Order/ Nutrition Support Cardiac Pertinent Medications Tums, azithromycin, vitamin D3 , colace, lasix, remeron, theragran, kcl Pertinent Labs 10/25 na 139, K 3.3, Cl 99, BUN 55, Cr 0.8, Glucose 176, Alb 3 .7 Nutritional Hx/Data Height 1.52 m Height (Calculated Centimeters) 152.4 Current Weight (lbs) 50.258 kg Weight (Calculated Kilograms) 50.3 Weight (Calculated Grams) 17276.0 [place] Body Weight 100 % [place] Body Weight 111 Body Mass Index (BMI) 21.6 Recent Weight Change No Weight Status Approriate GI Symptoms GI Symptoms None Last BM no record Difficult in: None Usual diet at home see subjective information Skin Integrity/Comment: rash to perinuem, buttocks and lower back edema Estimated Nutritional Goals BEE in Kcals: Using Current wt Calories/Kcals/Kg 25-30 Kcals Calculated 7853-3127 Protein: Using Current wt Protein g/k-1.2 Protein Calculated 50-60 Fluid: ml 6026-2674 or per MD d/t CHF Nutritional Problem 1. Problem Problem inadequate food intake Etiology poor appetite Signs/Symptoms: PO intake <25% Malnutrition Alert Protein-Calorie Malnutrition N/A Is there a minimum of two criteria No selected? Query Text:Check all the applicable criteria. A minimum of two criteria are recommended for diagnosis of either severe or non-severe malnutrition. Intervention/Recommendation Comments 1. Recommend Boost BID to increased nutrition intake. Family would like to try this supplement. RN notified. 2. Monitor PO intake, wt, labs and skin integrity 3. F/U as high risk in 2-3 days, 10/27-10/28 Expected Outcomes/Goals Expected Outcomes/Goals 1. PO intake to meet at least 75% of nutritional needs. 2. Wt stability, skin to remain intact, labs to approach WNL.
[2017-10-26] MEDS: NYSTATIN 100000 UNITS/GM POWD TP SCH (17:36)
--- NOTE | 2017-10-26 20:18 | Cardiology ---
10/24/[address] Delcid. M-MODE ECHOCARDIOGRAM: Mitral valve, anterior leaflet of mitral valve shows decreased excursion, EF velocity. Posterior leaflet of the mitral valve shows decreased excursion consistent with mitral stenosis. Left ventricular posterior wall shows increased thickness, normal excursion. Interventricular septum shows increased thickness, normal excursion, hypertrophy of the left ventricle, ejection fraction 55%. Left atrium enlarged 4.2 cm. Aortic root shows normal dimension with prosthetic aortic valve. CLINICAL IMPRESSION: Prosthetic aortic valve, severe mitral stenosis, hypertrophy of the left ventricle, left atrial enlargement, ejection fraction 55%. 2D ECHO: On the same patient, long axis view showed normal sized left ventricle with hypertrophy of the left ventricle. Mitral valve shows mitral stenosis. Left atrium enlarged. Aortic root shows normal dimension, normal excursion of the prosthetic aortic valve. Short axis view of mitral valve shows mitral stenosis. Short axis view of aortic valve SHOWS prosthetic aortic valve. Apical four chamber view showed normal sized left ventricle with hypertrophy of the left ventricle. Left atrium enlarged. Right ventricular cavity, right atrium enlarged. CONCLUSION: Left atrial enlargement, right atrial enlargement, hypertrophy of the left ventricle, ejection fraction 55%, mitral stenosis, and prosthetic aortic valve. Doppler study shows moderate to severe left ventricular hypertrophy with prominent A wave. Right ventricular systolic pressure 98 mmHg with severe pulmonary hypertension. Mild tricuspid regurgitation. Mild mitral regurgitation. [facility]# [id number]
[2017-10-27] MEDS: cefTRIAXone 1 GM in Sodium Chloride 0.9% 50 ML IV SCH (06:22)
[2017-10-27] MEDS: Azithromycin 500 MG in Sodium Chloride 0.9% 250 ML IV SCH (07:01)
[2017-10-27] MEDS: Nitroglycerin 0.1 mg/hr Tdm TD SCH (08:50)
[2017-10-27] MEDS: Multivitamin Tab PO SCH (08:52)
[2017-10-27] MEDS: Potassium Chloride 10 mEq ER Tab PO SCH (08:52)
[2017-10-27] MEDS: Metolazone 5 MG TAB PO SCH (08:53)
[2017-10-27] MEDS: NYSTATIN 100000 UNITS/GM POWD TP SCH ×2 (08:54→18:09)
--- NOTE | 2017-10-27 09:55 | Diagnostic Imaging Report ---
CHEST X-RAY: AP view INDICATION: Shortness of breath COMPARISON: 10/24/2017 FINDINGS: Chronic changes are seen with right basal opacity. Cardiomegaly is noted. IMPRESSION: Chronic lung changes with right basal opacity and volume loss. Findings may be due to combination of atelectasis pneumonia and superimposed right pleural effusion. Continued follow-up is recommended.
[2017-10-27 09:56] LABS: ANION GAP 14.8 (7.0-16.0); BUN - UREA NITROGEN 65 mg/dL (7-25); CALCIUM SERUM 9.6 mg/dL (8.6-10.3); CARBON DIOXIDE 36.1 mEq/L (21.0-31.0); CHLORIDE 97 mEq/L (98-107); CREATININE - SERUM 0.8 mg/dL (0.6-1.2); GLUCOSE 215 mg/dL (70-105); POTASSIUM SERUM 3.9 mEq/L (3.5-5.1); SODIUM SERUM 144 mEq/L (136-145)
[2017-10-27 10:33] LABS: EOSINOPHILE ABSOLUTE 0.1 Th/cmm (0.1-0.4); HEMATOCRIT 36.5 % (41.0-60); HEMOGLOBIN 11.7 gm/dL (12-16); LYMPHOCYTE ABSOLUTE 0.7 Th/cmm (1.5-3.0); MEAN CELL VOLUME 91.1 fl (81-100); MEAN CORPUSCULAR HEMOGLOBIN 29.1 pg (27.0-31.0); MEAN PLATELET VOLUME 9.1 fl; MONOCYTE ABSOLUTE 0.3 Th/cmm (0.3-1.0); NEUTROPHILE ABSOLUTE 10.5 Th/cmm (1.8-8.0); PLATELET COUNT 341 Th/cmm (150-400); RED CELL DISTRIBUTION WIDTH 15.5 % (11.5-20.0)
[2017-10-27 10:36] LABS: WHITE BLOOD COUNT 11.6 Th/cmm (4.8-10.8)
[2017-10-27 11:06] LABS: BAND NEUTROPHILE 3 % (0-10); EOSINOPHIL 4 % (0-5); LYMPHOCYTE 4 % (20-50); MONOCYTE 1 % (2-10); NEUTROPHILS 88 % (40-80); TOTAL CELLS COUNTED 100
[2017-10-27 11:07] LABS: PLATELET ESTIMATE ADEQUATE (NORMAL)
[2017-10-27] MEDS: Albuterol/Ipratropium Neb 3 ML AERS HHN SCH ×4 (11:18→22:08)
[2017-10-27] MEDS: methylPREDNISolone SS 40 mg Vial IVP SCH ×2 (13:13→20:53)
[2017-10-27 14:28] LABS: A1C % 6.3 % (4.0-6.0)
--- NOTE | 2017-10-27 15:49 | Consultation ---
DATE OF CONSULTATION: 10/24/[address] Delcid. HISTORY OF PRESENT ILLNESS: This is an 87-year-old female patient who has been complaining of upper respiratory tract infection, cough with expectoration, fever. Following this, the patient came to the Emergency Room with respiratory failure, pneumonia, and paroxysmal atrial fibrillation. The patient has elevated BNP level. PAST MEDICAL HISTORY: Severe mitral stenosis, prostatic aortic valve, COPD, paroxysmal atrial fibrillation, and severe pulmonary hypertension. FAMILY HISTORY: Unremarkable. SOCIAL HISTORY: No history of smoking, alcohol abuse. ALLERGIES: No known allergies. PHYSICAL EXAMINATION: VITAL SIGNS: Blood pressure 110/70, pulse 150 and regular, respirations 28. HEAD: Normocephalic. No lumps or bumps. EYES: Pupils equal, reactive to light. Fundi show AV nicking, sclerae white, conjunctivae pink. NECK: Carotid 2+. Normal upstroke. JVD 10 cm above the sternal angle. Thyroid not palpable. Lymph nodes not palpable. CHEST: Shows increased AP diameter. No kyphosis, scoliosis. LUNGS: Bilateral rales. Decreased breath sounds at the both bases. HEART: PMI sixth intercostal space with lateral to midclavicular line. S1, S2, S3, S4. S1 irregular. Systolic murmur, grade 2/6. The patient has diastolic murmur from mitral stenosis. ABDOMEN: Soft. Liver, spleen not palpable. Hepatojugular reflux positive. Bowel sounds are active. NEUROLOGIC: Unremarkable. EXTREMITIES: Peripheral pulses 1+. Minimal pedal edema. CLINICAL IMPRESSION: Acute respiratory failure, pneumonia, congestive heart failure, diastolic dysfunction, mitral stenosis, prosthetic aortic valve, paroxysmal atrial fibrillation, and chronic obstructive pulmonary disease. PLAN: The patient to continue present medications, diuretics. Preload afterload reduction. Pulmonary consult. Echocardiogram. Placed on anticoagulation. The patient has Coumadin toxicity. JOB# [id number]
--- NOTE | 2017-10-27 18:13 | General Progress Note ---
Subjective - Review of Systems Service Date: 10/27/17 Subjective: pt seen with diplomatic interpreter/translator at bedside c/o fatigue, SOB Objective - Results Result Diagrams: 10/27/17 09:20 10/27/17 09:20 Recent Labs: Laboratory Last Values WBC 11.6 Th/cmm (4.8-10.8) H D 10/27/17 09:20 RBC 4.00 Mil/cmm (3.80-5.20) 10/27/17 09:20 Hgb 11.7 gm/dL (12-16) L 10/27/17 09:20 Hct 36.5 % (41.0-60) L 10/27/17 09:20 MCV 91.1 fl (81-100) 10/27/17 09:20 MCH 29.1 pg (27.0-31.0) 10/27/17 09:20 MCHC Differential 32.0 pg (28.0-36.0) 10/27/17 09:20 RDW 15.5 % (11.5-20.0) 10/27/17 09:20 Plt Count 341 Th/cmm (150-400) 10/27/17 09:20 MPV 9.1 fl 10/27/17 09:20 Band Neutrophils % 3 % (0-10) 10/27/17 09:20 Neutrophils (Manual) 88 % (40-80) H 10/27/17 09:20 Lymphocytes 4 % (20-50) L 10/27/17 09:20 Monocytes 1 % (2-10) L 10/27/17 09:20 Eosinophils 4 % (0-5) 10/27/17 09:20 Platelet Estimate ADEQUATE (NORMAL) 10/27/17 09:20 PT 45.1 SECONDS (9.5-11.5) H 10/25/17 06:16 INR 4.03 (0.5-1.4) H* D 10/25/17 06:16 PTT (Actin FS) 47.8 SECONDS (26.0-38.0) H 10/24/17 10:45 Specimen Source arterial 10/24/17 03:58 Sample Site Left Radial 10/24/17 03:58 pH 7.28 (7.35-7.45) L 10/24/17 03:58 pCO2 64.0 mmHg (35.0-45.0) H* 01/03/18 03:58 pO2 250.0 mmHg (80.0-100.0) H 10/24/17 03:58 HCO3 26.0 mEq/L (20.0-26.0) 10/24/17 03:58 Base Excess 2.0 mEq/L (-3.0-3.0) 10/24/17 03:58 O2 Saturation 100.0 % (92.0-100.0) 10/24/17 03:58 Jerry Test Y 10/24/17 03:58 Vent Rate N/A 10/24/17 03:58 Inspired O2 100 10/24/17 03:58 Tidal Volume N/A 10/24/17 03:58 PEEP N/A 10/24/17 03:58 Pressure (ins/psv/peep) N/A 10/24/17 03:58 Critical Value O.LAUREN 10/24/17 03:58 Sodium 144 mEq/L (136-145) 10/27/17 09:20 Potassium 3.9 mEq/L (3.5-5.1) 10/27/17 09:20 Chloride 97 mEq/L (98-107) L 10/27/17 09:20 Carbon Dioxide 36.1 mEq/L (21.0-31.0) H 10/27/17 09:20 Anion Gap 14.8 (7.0-16.0) 10/27/17 09:20 BUN 65 mg/dL (7-25) H 10/27/17 09:20 Creatinine 0.8 mg/dL (0.6-1.2) 10/27/17 09:20 Est GFR ( Amer) TNP 10/27/17 09:20 Est GFR (Non-Af Amer) TNP 10/27/17 09:20 BUN/Creatinine Ratio 81.3 10/27/17 09:20 Glucose 215 mg/dL (70-105) H 10/27/17 09:20 Hemoglobin A1c % 6.3 % (4.0-6.0) H 10/27/17 09:20 Whole Bld Lactic Acid 1.95 mmol/L (0.60-1.99) 10/24/17 04:30 Calcium 9.6 mg/dL (8.6-10.3) 10/27/17 09:20 Total Bilirubin 0.5 mg/dL (0.3-1.0) 10/25/17 06:16 AST 17 U/L (13-39) 10/25/17 06:16 ALT 11 U/L (7-52) 10/25/17 06:16 Alkaline Phosphatase 33 U/L (34-104) L 10/25/17 06:16 Troponin I 0.19 ng/mL (0.01-0.05) H* 10/24/17 04:30 B-Natriuretic Peptide 2140.0 pg/mL (5.0-100.0) H 10/27/17 09:20 Total Protein 7.9 gm/dL (6.0-8.3) 10/25/17 06:16 Albumin 3.7 gm/dL (3.7-5.3) 10/25/17 06:16 Globulin 4.2 gm/dL 10/25/17 06:16 Albumin/Globulin Ratio 0.9 (1.0-1.8) L 10/25/17 06:16 Urine Source CATH 10/24/17 12:05 Urine Color YELLOW 10/24/17 12:05 Urine Clarity CLEAR (CLEAR) 10/24/17 12:05 Urine pH 5.5 (4.6 - 8.0) 10/24/17 12:05 Ur Specific [place] 1.025 (1.005-1.030) 10/24/17 12:05 Urine Protein NEGATIVE mg/dL (NEGATIVE) 10/24/17 12:05 Urine Glucose (UA) NEGATIVE mg/dL (NEGATIVE) 10/24/17 12:05 Urine Ketones NEGATIVE mg/dL (NEGATIVE) 10/24/17 12:05 Urine Blood SMALL (NEGATIVE) H 10/24/17 12:05 Urine Nitrate NEGATIVE (NEGATIVE) 10/24/17 12:05 Urine Bilirubin NEGATIVE (NEGATIVE) 10/24/17 12:05 Urine Urobilinogen 0.2 E.U./dL (0.2 - 1.0) 10/24/17 12:05 Ur Leukocyte Esterase NEGATIVE (NEGATIVE) 10/24/17 12:05 Urine RBC 2-5 /hpf (0-5) 10/24/17 12:05 Urine WBC 0-2 /hpf (0-5) 10/24/17 12:05 Ur Epithelial Cells FEW /lpf (FEW) 10/24/17 12:05 Amorphous Sediment FEW URATES (NONE SEEN) 10/24/17 12:05 Urine Bacteria FEW /hpf (NONE SEEN) 10/24/17 12:05 - Physical Exam Vitals and I&O: Vital Signs Temp 96.3 F 10/27/17 16:00 Pulse 72 10/27/17 17:00 Resp 24 10/27/17 17:00 BP 126/55 10/27/17 18:08 Pulse Ox 98 10/27/17 15:09 Intake & Output 10/26/17 10/27/17 10/27/17 18:59 06:59 18:59 Intake Total 250 600 300 Output Total 1151 Balance 250 -551 300 Weight (lbs) 48.988 kg Intake: Intake, IV Amount 250 300 Azithromycin 500 mg In 250 250 Sodium Chloride 0.9% 250 ml @ 250 mls/hr IV Q24HR [facility] Rx#:[id number] cefTRIAXone 1 gm In 50 Sodium Chloride 0.9% 50 ml @ 100 mls/hr IV Q24HR [facility] Rx#:[id number] Oral 600 Output: Urine 1150 Stool 1 Active Medications: Current Medications Acetaminophen (Tylenol) 650 mg PO Q6HR PRN PRN Reason: Pain or Fever >101 Stop: 12/23/17 09:54 Last Admin: 10/26/17 17:49 Dose: 650 mg Acetylcysteine (Mucomyst 20%) 3 ml HHN Q4HRT [facility] Stop: 12/26/17 10:59 Last Admin: 10/27/17 15:08 Dose: Not Given Albuterol/Ipratropium (Duoneb Neb) 3 ml HHN Q4HRT [facility] Stop: 12/26/17 10:59 Last Admin: 10/27/17 15:08 Dose: 3 ml Alprazolam (Xanax) 0.25 mg PO BID [facility] PRN Reason: Protocol Stop: 12/25/17 16:59 Last Admin: 10/27/17 18:08 Dose: Not Given Calcium Carbonate (Tums) 500 mg PO DAILY [facility] Stop: 12/24/17 08:59 Last Admin: 10/27/17 08:51 Dose: 500 mg Cholecalciferol (Vitamin D3) 1,000 iu PO DAILY [facility] Stop: 12/24/17 08:59 Last Admin: 10/27/17 08:52 Dose: 1,000 iu Diltiazem HCl (Cardizem) 20 mg IVP Q4H PRN PRN Reason: HR above 110 Stop: 12/24/17 00:29 Last Admin: 10/26/17 17:16 Dose: 20 mg Docusate Sodium (Colace) 100 mg PO DAILY [facility] Stop: 12/24/17 08:59 Last Admin: 10/27/17 08:52 Dose: 100 mg Donepezil HCl (Aricept) 10 mg PO HS [facility] Stop: 12/23/17 20:59 Last Admin: 10/26/17 20:49 Dose: 10 mg Furosemide (Lasix) 40 mg IVP BID [facility] Stop: 12/24/17 16:59 Last Admin: 10/27/17 18:08 Dose: 40 mg Azithromycin 500 mg/ Sodium (Chloride) 250 mls @ 250 mls/hr IV Q24HR [facility] Stop: 12/23/17 07:14 Last Infusion: 10/27/17 08:54 Dose: Infused Ceftriaxone Sodium 1 gm/ (Sodium Chloride) 50 mls @ 100 mls/hr IV Q24HR [facility] Stop: 12/23/17 07:14 Last Infusion: 10/27/17 08:54 Dose: Infused Megestrol Acetate (Megace) 400 mg PO BID [facility] PRN Reason: Protocol Stop: 12/25/17 16:59 Last Admin: 10/27/17 08:53 Dose: 400 mg Methylprednisolone Sodium Succinate (Solu-Medrol) 20 mg IVP Q8HR [facility] Stop: 12/26/17 12:59 Last Admin: 10/27/17 13:13 Dose: 20 mg Metolazone (Zaroxolyn) 5 mg PO DAILY [facility] Stop: 12/23/17 15:59 Last Admin: 10/27/17 08:53 Dose: 5 mg Mirtazapine (Remeron) 7.5 mg PO HS [facility] PRN Reason: Protocol Stop: 12/23/17 20:59 Last Admin: 10/26/17 20:49 Dose: 7.5 mg Multivitamins/Vitamin C (Theragran) 1 tab PO DAILY [facility] Stop: 12/24/17 08:59 Last Admin: 10/27/17 08:52 Dose: 1 tab Nitroglycerin (Transderm-Nitro) 1 patch TD DAILY [facility] Stop: 12/23/17 15:59 Last Admin: 10/27/17 08:50 Dose: 1 patch Nystatin (Nystop) 100 units TP BID [facility] Stop: 12/25/17 16:59 Last Admin: 10/27/17 18:09 Dose: 100 units Potassium Chloride (Klor-Con) 10 meq PO DAILY [facility] Stop: 12/23/17 15:59 Last Admin: 10/27/17 08:52 Dose: 10 meq Sotalol HCl (Betapace) 40 mg PO BID [facility] Stop: 12/23/17 16:59 Last Admin: 10/27/17 08:53 Dose: 40 mg General: Alert, No acute distress, Mild distress HEENT: Atraumatic, PERRLA Neck: Supple, JVD Cardiovascular: Regular rate, Normal S1, Normal S2 Lungs: Clear to auscultation Abdomen: Bowel sounds, Soft - Procedures Procedures: Procedures Procedure Code Date ASSISTANCE WITH RESPIRATORY VENTILATION, <24 HRS, CPAP [id number] 10/24/17 POS AIRWAY PRESSURE CPAP 73792 10/24/17 Assessment/Plan - Assessment Assessment: 1.ACUTE EXACERBATION OF CHF' 2.PNEUMONIA. 3.SEVER AORTIC VALVE STENOSIS. - Plan Plan: cont current treatment d/w son awaiting [facility] acceptance for transfer Nutritional Asmnt/Malnutr-PDOC - Dietary Evaluation Malnutrition Findings (Please click <Entered> for more info): Nutritional Asmnt/Malnutrition Start: 10/25/17 15: 34 Text: Status: Complete Freq: Document 10/25/17 15:34 LCHENG (Rec: 10/25/17 15:45 LCHENG [email or web address]) Nutritional Asmnt/Malnutrition Patient General Information Nutritional Screening High Risk Consult Diagnosis acute CHF, PNA Pertinent Medical Hx/Surgical Hx HTN, CHF, aortic stenosis Subjective Information Consult received for poor appetite. Pt seen lying in bed , awake, does not speak Mongolian. Family at bedside, reported pt has had poor appetite for a week, consumed few bites of breakfast this morning, denied chewing problem, pt used to drink Ensure daily. Per notes, PO intake 25% of dinner 10/25. Pt is on Remeron noted. Current Diet Order/ Nutrition Support Cardiac Pertinent Medications Tums, azithromycin, vitamin D3 , colace, lasix, remeron, theragran, kcl Pertinent Labs 10/25 na 139, K 3.3, Cl 99, BUN 55, Cr 0.8, Glucose 176, Alb 3 .7 Nutritional Hx/Data Height 1.52 m Height (Calculated Centimeters) 152.4 Current Weight (lbs) 50.258 kg Weight (Calculated Kilograms) 50.3 Weight (Calculated Grams) 65617.0 [place] Body Weight 100 % [place] Body Weight 111 Body Mass Index (BMI) 21.6 Recent Weight Change No Weight Status Approriate GI Symptoms GI Symptoms None Last BM no record Difficult in: None Usual diet at home see subjective information Skin Integrity/Comment: rash to perinuem, buttocks and lower back edema Estimated Nutritional Goals BEE in Kcals: Using Current wt Calories/Kcals/Kg 25-30 Kcals Calculated 9493-6250 Protein: Using Current wt Protein g/k-1.2 Protein Calculated 50-60 Fluid: ml [id number] or per MD d/t CHF Nutritional Problem 1. Problem Problem inadequate food intake Etiology poor appetite Signs/Symptoms: PO intake <25% Malnutrition Alert Protein-Calorie Malnutrition N/A Is there a minimum of two criteria No selected? Query Text:Check all the applicable criteria. A minimum of two criteria are recommended for diagnosis of either severe or non-severe malnutrition. Intervention/Recommendation Comments 1. Recommend Boost BID to increased nutrition intake. Family would like to try this supplement. RN notified. 2. Monitor PO intake, wt, labs and skin integrity 3. F/U as high risk in 2-3 days, 10/27-10/28 Expected Outcomes/Goals Expected Outcomes/Goals 1. PO intake to meet at least 75% of nutritional needs. 2. Wt stability, skin to remain intact, labs to approach WNL.
[2017-10-27] MEDS: Diltiazem 5 mg/mL 5mL Vial IVP PRN (20:52)
[2017-10-28] MEDS: Albuterol/Ipratropium Neb 3 ML AERS HHN SCH ×6 (02:49→22:38)
[2017-10-28] MEDS: methylPREDNISolone SS 40 mg Vial IVP SCH ×3 (05:30→20:29)
[2017-10-28 06:15] LABS: HEMATOCRIT 36.3 % (41.0-60); HEMOGLOBIN 12.2 gm/dL (12-16); LYMPHOCYTE ABSOLUTE 0.4 Th/cmm (1.5-3.0); MEAN CELL VOLUME 89.2 fl (81-100); MEAN CORPUSCULAR HGB CONC 33.6 pg (28.0-36.0); MONOCYTE ABSOLUTE 0.1 Th/cmm (0.3-1.0); NEUTROPHILE ABSOLUTE 6.3 Th/cmm (1.8-8.0); PLATELET COUNT 327 Th/cmm (150-400); RED BLOOD COUNT 4.07 Mil/cmm (3.80-5.20)
[2017-10-28] MEDS: cefTRIAXone 1 GM in Sodium Chloride 0.9% 50 ML IV SCH (06:18)
[2017-10-28 06:36] LABS: WHITE BLOOD COUNT 6.8 Th/cmm (4.8-10.8)
[2017-10-28] MEDS: Azithromycin 500 MG in Sodium Chloride 0.9% 250 ML IV SCH (06:48)
[2017-10-28 06:49] LABS: ALB/GLOB RATIO 0.8 (1.0-1.8); ALBUMIN 3.6 gm/dL (3.7-5.3); ALKALINE PHOSPHATASE 34 U/L (34-104); ANION GAP 11.5 (7.0-16.0); BILIRUBIN,TOTAL 0.5 mg/dL (0.3-1.0); BUN - UREA NITROGEN 67 mg/dL (7-25); CALCIUM SERUM 10.4 mg/dL (8.6-10.3); CHLORIDE 93 mEq/L (98-107); CREATININE - SERUM 0.7 mg/dL (0.6-1.2); GLUCOSE 168 mg/dL (70-105); SGOT 14 U/L (13-39); SGPT/ALT 9 U/L (7-52); SODIUM SERUM 144 mEq/L (136-145)
[2017-10-28 07:04] LABS: CARBON DIOXIDE 42.5 mEq/L (21.0-31.0)
[2017-10-28 08:27] LABS: BAND NEUTROPHILE 1 % (0-10); LYMPHOCYTE 11 % (20-50); MONOCYTE 3 % (2-10); NEUTROPHILS 85 % (40-80); PLATELET ESTIMATE ADEQUATE (NORMAL); TOTAL CELLS COUNTED 100
[2017-10-28] MEDS: Nitroglycerin 0.1 mg/hr Tdm TD SCH (08:34)
[2017-10-28] MEDS: Multivitamin Tab PO SCH (08:37)
[2017-10-28] MEDS: Potassium Chloride 10 mEq ER Tab PO SCH (08:38)
[2017-10-28] MEDS: Metolazone 5 MG TAB PO SCH (08:38)
[2017-10-28] MEDS: NYSTATIN 100000 UNITS/GM POWD TP SCH ×2 (08:56→17:50)
[2017-10-28] MEDS ORDERED: Potassium Chloride 20 mEq ER Tab PO ONE (13:18)
[2017-10-28] MEDS ORDERED: Probiotic Screen MC PRN (14:46)
--- NOTE | 2017-10-28 16:49 | General Progress Note ---
Subjective - Review of Systems Service Date: 10/28/17 Subjective: pt resting in bed awake but tired family at bedside Objective - Results Result Diagrams: 10/28/17 05:45 10/28/17 05:45 Recent Labs: Laboratory Last Values WBC 6.8 Th/cmm (4.8-10.8) D 10/28/17 05:45 RBC 4.07 Mil/cmm (3.80-5.20) 10/28/17 05:45 Hgb 12.2 gm/dL (12-16) 10/28/17 05:45 Hct 36.3 % (41.0-60) L 10/28/17 05:45 MCV 89.2 fl (81-100) 10/28/17 05:45 MCH 30.0 pg (27.0-31.0) 10/28/17 05:45 MCHC Differential 33.6 pg (28.0-36.0) 10/28/17 05:45 RDW 15.0 % (11.5-20.0) 10/28/17 05:45 Plt Count 327 Th/cmm (150-400) 10/28/17 05:45 MPV 9.0 fl 10/28/17 05:45 Band Neutrophils % 1 % (0-10) 10/28/17 05:45 Neutrophils (Manual) 85 % (40-80) H 10/28/17 05:45 Lymphocytes 11 % (20-50) L 10/28/17 05:45 Monocytes 3 % (2-10) 10/28/17 05:45 Eosinophils 4 % (0-5) 10/27/17 09:20 Platelet Estimate ADEQUATE (NORMAL) 10/28/17 05:45 PT 45.1 SECONDS (9.5-11.5) H 10/25/17 06:16 INR 4.03 (0.5-1.4) H* D 10/25/17 06:16 PTT (Actin FS) 47.8 SECONDS (26.0-38.0) H 10/24/17 10:45 Specimen Source arterial 10/24/17 03:58 Sample Site Left Radial 10/24/17 03:58 pH 7.28 (7.35-7.45) L 10/24/17 03:58 pCO2 64.0 mmHg (35.0-45.0) H* 10/24/17 03:58 pO2 250.0 mmHg (80.0-100.0) H 10/24/17 03:58 HCO3 26.0 mEq/L (20.0-26.0) 10/24/17 03:58 Base Excess 2.0 mEq/L (-3.0-3.0) 10/24/17 03:58 O2 Saturation 100.0 % (92.0-100.0) 10/24/17 03:58 Jerry Test Y 10/24/17 03:58 Vent Rate N/A 10/24/17 03:58 Inspired O2 100 10/24/17 03:58 Tidal Volume N/A 10/24/17 03:58 PEEP N/A 10/24/17 03:58 Pressure (ins/psv/peep) N/A 10/24/17 03:58 Critical Value O.LAUREN 10/24/17 03:58 Sodium 144 mEq/L (136-145) 10/28/17 05:45 Potassium 3.0 mEq/L (3.5-5.1) L 10/28/17 05:45 Chloride 93 mEq/L (98-107) L 10/28/17 05:45 Carbon Dioxide 42.5 mEq/L (21.0-31.0) H 10/28/17 05:45 Anion Gap 11.5 (7.0-16.0) 10/28/17 05:45 BUN 67 mg/dL (7-25) H 10/28/17 05:45 Creatinine 0.7 mg/dL (0.6-1.2) 10/28/17 05:45 Est GFR ( Amer) TNP 10/28/17 05:45 Est GFR (Non-Af Amer) [facility] 10/28/17 05:45 BUN/Creatinine Ratio 95.7 10/28/17 05:45 Glucose 168 mg/dL (70-105) H 10/28/17 05:45 Hemoglobin A1c % 6.3 % (4.0-6.0) H 10/27/17 09:20 Whole Bld Lactic Acid 1.95 mmol/L (0.60-1.99) 10/24/17 04:30 Calcium 10.4 mg/dL (8.6-10.3) H 10/28/17 05:45 Total Bilirubin 0.5 mg/dL (0.3-1.0) 10/28/17 05:45 AST 14 U/L (13-39) 10/28/17 05:45 ALT 9 U/L (7-52) 10/28/17 05:45 Alkaline Phosphatase 34 U/L (34-104) 10/28/17 05:45 Troponin I 0.19 ng/mL (0.01-0.05) H* 10/24/17 04:30 B-Natriuretic Peptide 2140.0 pg/mL (5.0-100.0) H 10/27/17 09:20 Total Protein 8.0 gm/dL (6.0-8.3) 10/28/17 05:45 Albumin 3.6 gm/dL (3.7-5.3) L 10/28/17 05:45 Globulin 4.4 gm/dL 10/28/17 05:45 Albumin/Globulin Ratio 0.8 (1.0-1.8) L 10/28/17 05:45 Urine Source CATH 10/24/17 12:05 Urine Color YELLOW 10/24/17 12:05 Urine Clarity CLEAR (CLEAR) 10/24/17 12:05 Urine pH 5.5 (4.6 - 8.0) 10/24/17 12:05 Ur Specific [place] 1.025 (1.005-1.030) 10/24/17 12:05 Urine Protein NEGATIVE mg/dL (NEGATIVE) 10/24/17 12:05 Urine Glucose (UA) NEGATIVE mg/dL (NEGATIVE) 10/24/17 12:05 Urine Ketones NEGATIVE mg/dL (NEGATIVE) 10/24/17 12:05 Urine Blood SMALL (NEGATIVE) H 10/24/17 12:05 Urine Nitrate NEGATIVE (NEGATIVE) 10/24/17 12:05 Urine Bilirubin NEGATIVE (NEGATIVE) 10/24/17 12:05 Urine Urobilinogen 0.2 E.U./dL (0.2 - 1.0) 10/24/17 12:05 Ur Leukocyte Esterase NEGATIVE (NEGATIVE) 10/24/17 12:05 Urine RBC 2-5 /hpf (0-5) 10/24/17 12:05 Urine WBC 0-2 /hpf (0-5) 10/24/17 12:05 Ur Epithelial Cells FEW /lpf (FEW) 10/24/17 12:05 Amorphous Sediment FEW URATES (NONE SEEN) 10/24/17 12:05 Urine Bacteria FEW /hpf (NONE SEEN) 10/24/17 12:05 - Physical Exam Vitals and I&O: Vital Signs Temp 97.5 F 10/28/17 08:00 Pulse 83 10/28/17 16:00 Resp 28 10/28/17 16:00 BP 139/63 10/28/17 11:00 Pulse Ox 97 10/28/17 16:00 Intake & Output 10/27/17 10/28/17 10/28/17 18:59 06:59 18:59 Intake Total 300 100 50 Output Total 350 Balance 300 -250 50 Weight (lbs) 48.308 kg Intake: Intake, IV Amount 300 50 Azithromycin 500 mg In 250 Sodium Chloride 0.9% 250 ml @ 250 mls/hr IV Q24HR [facility] Rx#:[id number] cefTRIAXone 1 gm In 50 50 Sodium Chloride 0.9% 50 ml @ 100 mls/hr IV Q24HR [facility] Rx#:[id number] Oral 100 Output: Urine 350 Stool 0 Active Medications: Current Medications Acetaminophen (Tylenol) 650 mg PO Q6HR PRN PRN Reason: Pain or Fever >101 Stop: 12/23/17 09:54 Last Admin: 10/26/17 17:49 Dose: 650 mg Acetylcysteine (Mucomyst 20%) 3 ml HHN Q4HRT [facility] Stop: 12/26/17 10:59 Last Admin: 10/28/17 10:37 Dose: Not Given Albuterol/Ipratropium (Duoneb Neb) 3 ml HHN Q4HRT [facility] Stop: 12/26/17 10:59 Last Admin: 10/28/17 16:00 Dose: 3 ml Alprazolam (Xanax) 0.25 mg PO BID PRN; Protocol PRN Reason: Anxiety Stop: 12/25/17 16:59 Last Admin: 10/28/17 06:17 Dose: 0.25 mg Calcium Carbonate (Tums) 500 mg PO DAILY [facility] Stop: 12/24/17 08:59 Last Admin: 10/28/17 08:39 Dose: 500 mg Cholecalciferol (Vitamin D3) 1,000 iu PO DAILY [facility] Stop: 12/24/17 08:59 Last Admin: 10/28/17 08:38 Dose: 1,000 iu Diltiazem HCl (Cardizem) 20 mg IVP Q4H PRN PRN Reason: HR above 110 Stop: 12/24/17 00:29 Last Admin: 10/27/17 20:52 Dose: 20 mg Docusate Sodium (Colace) 100 mg PO DAILY [facility] Stop: 12/24/17 08:59 Last Admin: 10/28/17 08:39 Dose: 100 mg Donepezil HCl (Aricept) 10 mg PO HS [facility] Stop: 12/23/17 20:59 Last Admin: 10/27/17 20:54 Dose: 10 mg Furosemide (Lasix) 40 mg IVP BID [facility] Stop: 12/24/17 16:59 Last Admin: 10/28/17 08:38 Dose: 40 mg Azithromycin 500 mg/ Sodium (Chloride) 250 mls @ 250 mls/hr IV Q24HR [facility] Stop: 12/23/17 07:14 Last Admin: 10/28/17 06:48 Dose: 250 mls/hr Ceftriaxone Sodium 1 gm/ (Sodium Chloride) 50 mls @ 100 mls/hr IV Q24HR [facility] Stop: 12/23/17 07:14 Last Infusion: 10/28/17 07:22 Dose: Infused Megestrol Acetate (Megace) 400 mg PO BID [facility] PRN Reason: Protocol Stop: 12/25/17 16:59 Last Admin: 10/28/17 08:39 Dose: 400 mg Methylprednisolone Sodium Succinate (Solu-Medrol) 20 mg IVP Q8HR [facility] Stop: 12/26/17 12:59 Last Admin: 10/28/17 13:22 Dose: 20 mg Metolazone (Zaroxolyn) 5 mg PO DAILY [facility] Stop: 12/23/17 15:59 Last Admin: 10/28/17 08:38 Dose: 5 mg Mirtazapine (Remeron) 7.5 mg PO HS [facility] PRN Reason: Protocol Stop: 12/23/17 20:59 Last Admin: 10/27/17 20:54 Dose: 7.5 mg Miscellaneous (Probiotic Screen) 1 ea MC PRN PRN PRN Reason: PROTOCOL Stop: 12/27/17 14:45 Multivitamins/Vitamin C (Theragran) 1 tab PO DAILY [facility] Stop: 12/24/17 08:59 Last Admin: 10/28/17 08:37 Dose: 1 tab Nitroglycerin (Transderm-Nitro) 1 patch TD DAILY [facility] Stop: 12/23/17 15:59 Last Admin: 10/28/17 08:34 Dose: 1 patch Nystatin (Nystop) 100 units TP BID [facility] Stop: 12/25/17 16:59 Last Admin: 10/28/17 08:56 Dose: 100 units Potassium Chloride (Klor-Con) 10 meq PO DAILY [facility] Stop: 12/23/17 15:59 Last Admin: 10/28/17 08:38 Dose: 10 meq Sotalol HCl (Betapace) 40 mg PO BID [facility] Stop: 12/23/17 16:59 Last Admin: 10/28/17 08:38 Dose: 40 mg General: Alert, No acute distress, Mild distress HEENT: Atraumatic, PERRLA Neck: Supple, JVD Cardiovascular: Regular rate, Normal S1, Normal S2 Lungs: Clear to auscultation Abdomen: Bowel sounds, Soft - Procedures Procedures: Procedures Procedure Code Date ASSISTANCE WITH RESPIRATORY VENTILATION, <24 HRS, CPAP 4V69012 10/24/17 POS AIRWAY PRESSURE CPAP 27900 10/24/17 Assessment/Plan - Assessment Assessment: 1.ACUTE EXACERBATION OF CHF' 2.PNEUMONIA. 3.SEVER AORTIC VALVE STENOSIS. - Plan Plan: cont current treatment d/w son awaiting [facility] acceptance for transfer Nutritional Asmnt/Malnutr-PDOC - Dietary Evaluation Malnutrition Findings (Please click <Entered> for more info): Nutritional Asmnt/Malnutrition Start: 10/25/17 15: 34 Text: Status: Complete Freq: Document 10/25/17 15:[address] [facility] (Rec: 10/25/17 15:[address] [facility] [email or web address]) Nutritional Asmnt/Malnutrition Patient General Information Nutritional Screening High Risk Consult Diagnosis acute CHF, PNA Pertinent Medical Hx/Surgical Hx HTN, CHF, aortic stenosis Subjective Information Consult received for poor appetite. Pt seen lying in bed , awake, does not speak Khmer. Family at bedside, reported pt has had poor appetite for a week, consumed few bites of breakfast this morning, denied chewing problem, pt used to drink Ensure daily. Per notes, PO intake 25% of dinner 1/. Pt is on Remeron noted. Current Diet Order/ Nutrition Support Cardiac Pertinent Medications Tums, azithromycin, vitamin D3 , colace, lasix, remeron, theragran, kcl Pertinent Labs 10/25 na 139, K 3.3, Cl 99, BUN 55, Cr 0.8, Glucose 176, Alb 3 .7 Nutritional Hx/Data Height 1.52 m Height (Calculated Centimeters) 152.4 Current Weight (lbs) 50.258 kg Weight (Calculated Kilograms) 50.3 Weight (Calculated Grams) 98095.0 [place] Body Weight 100 % [place] Body Weight 111 Body Mass Index (BMI) 21.6 Recent Weight Change No Weight Status Approriate GI Symptoms GI Symptoms None Last BM no record Difficult in: None Usual diet at home see subjective information Skin Integrity/Comment: rash to perinuem, buttocks and lower back edema Estimated Nutritional Goals BEE in Kcals: Using Current wt Calories/Kcals/Kg 25-30 Kcals Calculated 2303-8756 Protein: Using Current wt Protein g/k-1.2 Protein Calculated 50-60 Fluid: ml 2892-7139 or per MD d/t CHF Nutritional Problem 1. Problem Problem inadequate food intake Etiology poor appetite Signs/Symptoms: PO intake <25% Malnutrition Alert Protein-Calorie Malnutrition N/A Is there a minimum of two criteria No selected? Query Text:Check all the applicable criteria. A minimum of two criteria are recommended for diagnosis of either severe or non-severe malnutrition. Intervention/Recommendation Comments 1. Recommend Boost BID to increased nutrition intake. Family would like to try this supplement. RN notified. 2. Monitor PO intake, wt, labs and skin integrity 3. F/U as high risk in 2-3 days, 10/27-10/28 Expected Outcomes/Goals Expected Outcomes/Goals 1. PO intake to meet at least 75% of nutritional needs. 2. Wt stability, skin to remain intact, labs to approach WNL.
[2017-10-29] MEDS: Albuterol/Ipratropium Neb 3 ML AERS HHN SCH ×6 (02:44→23:07)
[2017-10-29 05:33] LABS: HEMATOCRIT 35.5 % (41.0-60); HEMOGLOBIN 11.8 gm/dL (12-16); MEAN CELL VOLUME 89.1 fl (81-100); MEAN CORPUSCULAR HEMOGLOBIN 29.5 pg (27.0-31.0); MEAN CORPUSCULAR HGB CONC 33.1 pg (28.0-36.0); MEAN PLATELET VOLUME 9.6 fl; PLATELET COUNT 318 Th/cmm (150-400); RED BLOOD COUNT 3.98 Mil/cmm (3.80-5.20)
[2017-10-29 05:38] LABS: WHITE BLOOD COUNT 9.5 Th/cmm (4.8-10.8)
[2017-10-29 05:41] LABS: INR 2.01 (0.5-1.4); PROTHROMBIN TIME (TEST) 21.6 SECONDS (9.5-11.5)
[2017-10-29 05:42] LABS: ANION GAP 9.6 (7.0-16.0); BUN - UREA NITROGEN 75 mg/dL (7-25); CALCIUM SERUM 10.3 mg/dL (8.6-10.3); CHLORIDE 93 mEq/L (98-107); CREATININE - SERUM 0.8 mg/dL (0.6-1.2); GLUCOSE 159 mg/dL (70-105); POTASSIUM SERUM 3.6 mEq/L (3.5-5.1); SODIUM SERUM 143 mEq/L (136-145)
[2017-10-29 05:53] LABS: BAND NEUTROPHILE 2 % (0-10); EOSINOPHIL 1 % (0-5); LYMPHOCYTE 7 % (20-50); MONOCYTE 2 % (2-10); NEUTROPHILS 88 % (40-80); TOTAL CELLS COUNTED 100
[2017-10-29] MEDS: methylPREDNISolone SS 40 mg Vial IVP SCH ×3 (06:18→20:39)
[2017-10-29] MEDS: cefTRIAXone 1 GM in Sodium Chloride 0.9% 50 ML IV SCH (06:47)
[2017-10-29] MEDS: NYSTATIN 100000 UNITS/GM POWD TP SCH ×2 (08:00→17:34)
[2017-10-29] MEDS: Potassium Chloride 10 mEq ER Tab PO SCH (08:24)
[2017-10-29] MEDS: Nitroglycerin 0.1 mg/hr Tdm TD SCH (08:24)
[2017-10-29] MEDS: Metolazone 5 MG TAB PO SCH (08:25)
[2017-10-29] MEDS: Multivitamin Tab PO SCH (08:25)
[2017-10-29] MEDS: Azithromycin 500 MG in Sodium Chloride 0.9% 250 ML IV SCH (08:26)
--- NOTE | 2017-10-29 08:33 | Diagnostic Imaging Report ---
Portable chest x-ray HISTORY: Shortness of breath Compared with prior exam generally 2017, the heart remains enlarged. Evidence of a right pleural effusion. Surgical changes noted. IMPRESSION: 1. No significant change in the cardiopulmonary status. Persistent cardiomegaly along with evidence of a right pleural effusion. Changes may be related to congestive heart failure. Pneumonia cannot be excluded. Clinical correlation is needed.
--- NOTE | 2017-10-29 17:21 | Internal Medicine Prog Note ---
Internal Medicine Subjective - Subjective Service Date: 10/29/17 Patient seen and examined:: with staff (she is feeling better,no chest pain.) Patient is:: verbal, in bed Patient Complaints of:: congestion Per staff patient has:: no adverse event Internal Medicine Objective - Results Result Diagrams: 10/29/17 04:24 10/29/17 04:24 Recent Labs: Laboratory Last Values WBC 9.5 Th/cmm (4.8-10.8) D 10/29/17 04:24 RBC 3.98 Mil/cmm (3.80-5.20) 10/29/17 04:24 Hgb 11.8 gm/dL (12-16) L 10/29/17 04:24 Hct 35.5 % (41.0-60) L 10/29/17 04:24 MCV 89.1 fl (81-100) 10/29/17 04:24 MCH 29.5 pg (27.0-31.0) 10/29/17 04:24 MCHC Differential 33.1 pg (28.0-36.0) 10/29/17 04:24 RDW 15.0 % (11.5-20.0) 10/29/17 04:24 Plt Count 318 Th/cmm (150-400) 10/29/17 04:24 MPV 9.6 fl 10/29/17 04:24 Band Neutrophils % 2 % (0-10) 10/29/17 04:24 Neutrophils (Manual) 88 % (40-80) H 10/29/17 04:24 Lymphocytes 7 % (20-50) L 10/29/17 04:24 Monocytes 2 % (2-10) 10/29/17 04:24 Eosinophils 1 % (0-5) 10/29/17 04:24 Platelet Estimate ADEQUATE (NORMAL) 10/28/17 05:45 PT 21.6 SECONDS (9.5-11.5) H 10/29/17 04:24 INR 2.01 (0.5-1.4) H 10/29/17 04:24 PTT (Actin FS) 29.8 SECONDS (26.0-38.0) 10/29/17 04:24 Specimen Source arterial 10/24/17 03:58 Sample Site Left Radial 10/24/17 03:58 pH 7.28 (7.35-7.45) L 10/24/17 03:58 pCO2 64.0 mmHg (35.0-45.0) H* 10/24/17 03:58 pO2 250.0 mmHg (80.0-100.0) H 10/24/17 03:58 HCO3 26.0 mEq/L (20.0-26.0) 10/24/17 03:58 Base Excess 2.0 mEq/L (-3.0-3.0) 10/24/17 03:58 O2 Saturation 100.0 % (92.0-100.0) 10/24/17 03:58 Jerry Test Y 10/24/17 03:58 Vent Rate N/A 10/24/17 03:58 Inspired O2 100 10/24/17 03:58 Tidal Volume N/A 10/24/17 03:58 PEEP N/A 10/24/17 03:58 Pressure (ins/psv/peep) N/A 10/24/17 03:58 Critical Value O.LAUREN 10/24/17 03:58 Sodium 143 mEq/L (136-145) 10/29/17 04:24 Potassium 3.6 mEq/L (3.5-5.1) 10/29/17 04:24 Chloride 93 mEq/L (98-107) L 10/29/17 04:24 Carbon Dioxide 44.0 mEq/L (21.0-31.0) H 10/29/17 04:24 Anion Gap 9.6 (7.0-16.0) 10/29/17 04:24 BUN 75 mg/dL (7-25) H 10/29/17 04:24 Creatinine 0.8 mg/dL (0.6-1.2) 10/29/17 04:24 Est GFR ( Amer) TNP 10/29/17 04:24 Est GFR (Non-Af Amer) TNP 10/29/17 04:24 BUN/Creatinine Ratio 93.8 10/29/17 04:24 Glucose 159 mg/dL (70-105) H 10/29/17 04:24 Hemoglobin A1c % 6.3 % (4.0-6.0) H 10/27/17 09:20 Whole Bld Lactic Acid 1.95 mmol/L (0.60-1.99) 10/24/17 04:30 Calcium 10.3 mg/dL (8.6-10.3) 10/29/17 04:24 Total Bilirubin 0.5 mg/dL (0.3-1.0) 10/28/17 05:45 AST 14 U/L (13-39) 10/28/17 05:45 ALT 9 U/L (7-52) 10/28/17 05:45 Alkaline Phosphatase 34 U/L (34-104) 10/28/17 05:45 Troponin I 0.19 ng/mL (0.01-0.05) H* 10/24/17 04:30 B-Natriuretic Peptide 1630.0 pg/mL (5.0-100.0) H 10/29/17 04:24 Total Protein 8.0 gm/dL (6.0-8.3) 10/28/17 05:45 Albumin 3.6 gm/dL (3.7-5.3) L 10/28/17 05:45 Globulin 4.4 gm/dL 10/28/17 05:45 Albumin/Globulin Ratio 0.8 (1.0-1.8) L 10/28/17 05:45 Urine Source CATH 10/24/17 12:05 Urine Color YELLOW 10/24/17 12:05 Urine Clarity CLEAR (CLEAR) 10/24/17 12:05 Urine pH 5.5 (4.6 - 8.0) 10/24/17 12:05 Ur Specific [place] 1.025 (1.005-1.030) 10/24/17 12:05 Urine Protein NEGATIVE mg/dL (NEGATIVE) 10/24/17 12:05 Urine Glucose (UA) NEGATIVE mg/dL (NEGATIVE) 10/24/17 12:05 Urine Ketones NEGATIVE mg/dL (NEGATIVE) 10/24/17 12:05 Urine Blood SMALL (NEGATIVE) H 10/24/17 12:05 Urine Nitrate NEGATIVE (NEGATIVE) 10/24/17 12:05 Urine Bilirubin NEGATIVE (NEGATIVE) 10/24/17 12:05 Urine Urobilinogen 0.2 E.U./dL (0.2 - 1.0) 10/24/17 12:05 Ur Leukocyte Esterase NEGATIVE (NEGATIVE) 10/24/17 12:05 Urine RBC 2-5 /hpf (0-5) 10/24/17 12:05 Urine WBC 0-2 /hpf (0-5) 10/24/17 12:05 Ur Epithelial Cells FEW /lpf (FEW) 10/24/17 12:05 Amorphous Sediment FEW URATES (NONE SEEN) 10/24/17 12:05 Urine Bacteria FEW /hpf (NONE SEEN) 10/24/17 12:05 - Physical Exam Vitals and I&O: Vital Signs Temp 96.7 F 10/29/17 16:00 Pulse 75 10/29/17 16:32 Resp 20 10/29/17 16:00 BP 119/60 10/29/17 16:33 Pulse Ox 98 10/29/17 16:00 Intake & Output 10/28/17 10/29/17 10/29/17 18:59 06:59 18:59 Intake Total 750 120 300 Output Total 830 550 Balance -80 -430 300 Weight (lbs) 48.081 kg 47.854 kg Intake: Intake, IV Amount 300 300 Azithromycin 500 mg In 250 250 Sodium Chloride 0.9% 250 ml @ 250 mls/hr IV Q24HR [facility] Rx#:[id number] cefTRIAXone 1 gm In 50 50 Sodium Chloride 0.9% 50 ml @ 100 mls/hr IV Q24HR [facility] Rx#:[id number] Oral 450 120 Output: Urine 830 550 Active Medications: Current Medications Acetaminophen (Tylenol) 650 mg PO Q6HR PRN PRN Reason: Pain or Fever >101 Stop: 12/23/17 09:54 Last Admin: 10/29/17 06:59 Dose: 650 mg Acetylcysteine (Mucomyst 20%) 3 ml HHN Q4HRT [facility] Stop: 12/26/17 10:59 Last Admin: 10/29/17 14:42 Dose: 3 ml Albuterol/Ipratropium (Duoneb Neb) 3 ml HHN Q4HRT [facility] Stop: 12/26/17 10:59 Last Admin: 10/29/17 14:42 Dose: 3 ml Alprazolam (Xanax) 0.25 mg PO BID PRN; Protocol PRN Reason: Anxiety Stop: 12/25/17 16:59 Last Admin: 10/28/17 06:17 Dose: 0.25 mg Calcium Carbonate (Tums) 500 mg PO DAILY [facility] Stop: 12/24/17 08:59 Last Admin: 10/29/17 08:25 Dose: 500 mg Cholecalciferol (Vitamin D3) 1,000 iu PO DAILY [facility] Stop: 12/24/17 08:59 Last Admin: 10/29/17 08:25 Dose: 1,000 iu Diltiazem HCl (Cardizem) 20 mg IVP Q4H PRN PRN Reason: HR above 110 Stop: 12/24/17 00:29 Last Admin: 10/27/17 20:52 Dose: 20 mg Docusate Sodium (Colace) 100 mg PO DAILY [facility] Stop: 12/24/17 08:59 Last Admin: 10/29/17 08:25 Dose: 100 mg Donepezil HCl (Aricept) 10 mg PO HS [facility] Stop: 12/23/17 20:59 Last Admin: 10/28/17 20:28 Dose: 10 mg Furosemide (Lasix) 40 mg IVP BID [facility] Stop: 12/24/17 16:59 Last Admin: 10/29/17 16:33 Dose: 40 mg Azithromycin 500 mg/ Sodium (Chloride) 250 mls @ 250 mls/hr IV Q24HR [facility] Stop: 12/23/17 07:14 Last Infusion: 10/29/17 09:30 Dose: Infused Ceftriaxone Sodium 1 gm/ (Sodium Chloride) 50 mls @ 100 mls/hr IV Q24HR [facility] Stop: 12/23/17 07:14 Last Infusion: 10/29/17 07:20 Dose: Infused Megestrol Acetate (Megace) 400 mg PO BID [facility] PRN Reason: Protocol Stop: 12/25/17 16:59 Last Admin: 10/29/17 16:33 Dose: 400 mg Methylprednisolone Sodium Succinate (Solu-Medrol) 20 mg IVP Q8HR [facility] Stop: 12/26/17 12:59 Last Admin: 10/29/17 12:26 Dose: 20 mg Metolazone (Zaroxolyn) 5 mg PO DAILY [facility] Stop: 12/23/17 15:59 Last Admin: 10/29/17 08:25 Dose: 5 mg Mirtazapine (Remeron) 7.5 mg PO HS [facility] PRN Reason: Protocol Stop: 12/23/17 20:59 Last Admin: 10/28/17 20:28 Dose: 7.5 mg Miscellaneous (Probiotic Screen) 1 ea MC PRN PRN PRN Reason: PROTOCOL Stop: 12/27/17 14:45 Multivitamins/Vitamin C (Theragran) 1 tab PO DAILY [facility] Stop: 12/24/17 08:59 Last Admin: 10/29/17 08:25 Dose: 1 tab Nitroglycerin (Transderm-Nitro) 1 patch TD DAILY [facility] Stop: 12/23/17 15:59 Last Admin: 10/29/17 08:24 Dose: 1 patch Nystatin (Nystop) 100 units TP BID [facility] Stop: 12/25/17 16:59 Last Admin: 10/29/17 08:00 Dose: 100 units Potassium Chloride (Klor-Con) 10 meq PO DAILY [facility] Stop: 12/23/17 15:59 Last Admin: 10/29/17 08:24 Dose: 10 meq Sotalol HCl (Betapace) 40 mg PO BID [facility] Stop: 12/23/17 16:59 Last Admin: 10/29/17 16:32 Dose: 40 mg General: weak, thin HEENT: NC/AT, PERRLA, EOMI, anicteric sclerae, throat clear Neck: + JVD Lungs: CTAB Abdomen: soft, non-tender, non-distended Extremities: clear Neurological: no change - Procedures Procedures: Procedures Procedure Code Date ASSISTANCE WITH RESPIRATORY VENTILATION, <24 HRS, CPAP [id number] 10/24/17 POS AIRWAY PRESSURE CPAP 53036 10/24/17 Internal Medicine Assmt/Plan - Assessment Assessment: 1.ACUTE EXACERBATION OF CHF' 2.PNEUMONIA. 3.SEVER AORTIC VALVE STENOSIS. - Plan Plan: CONTINUE ON CURRENT MEDICATION AND DIET.she can be transferred to by acls if bed is available. Nutritional Asmnt/Malnutr-PDOC - Dietary Evaluation Malnutrition Findings (Please click <Entered> for more info): Nutritional Asmnt/Malnutrition Start: 10/25/17 15: 34 Text: Status: Complete Freq: Document 10/25/17 15:34 [facility] (Rec: 10/25/17 15:45 [email or web address]) Nutritional Asmnt/Malnutrition Patient General Information Nutritional Screening High Risk Consult Diagnosis acute CHF, PNA Pertinent Medical Hx/Surgical Hx HTN, CHF, aortic stenosis Subjective Information Consult received for poor appetite. Pt seen lying in bed , awake, does not speak Belarusian. Family at bedside, reported pt has had poor appetite for a week, consumed few bites of breakfast this morning, denied chewing problem, pt used to drink Ensure daily. Per notes, PO intake 25% of dinner 10/25. Pt is on Remeron noted. Current Diet Order/ Nutrition Support Cardiac Pertinent Medications Tums, azithromycin, vitamin D3 , colace, lasix, remeron, theragran, kcl Pertinent Labs 10/25 na 139, K 3.3, Cl 99, BUN 55, Cr 0.8, Glucose 176, Alb 3 .7 Nutritional Hx/Data Height 1.52 m Height (Calculated Centimeters) 152.4 Current Weight (lbs) 50.258 kg Weight (Calculated Kilograms) 50.3 Weight (Calculated Grams) 37069.0 [place] Body Weight 100 % [place] Body Weight 111 Body Mass Index (BMI) 21.6 Recent Weight Change No Weight Status Approriate GI Symptoms GI Symptoms None Last BM no record Difficult in: None Usual diet at home see subjective information Skin Integrity/Comment: rash to perinuem, buttocks and lower back edema Estimated Nutritional Goals BEE in Kcals: Using Current wt Calories/Kcals/Kg 25-30 Kcals Calculated 0709-8531 Protein: Using Current wt Protein g/k-1.2 Protein Calculated 50-60 Fluid: ml 9683-3769 or per MD d/t CHF Nutritional Problem 1. Problem Problem inadequate food intake Etiology poor appetite Signs/Symptoms: PO intake <25% Malnutrition Alert Protein-Calorie Malnutrition N/A Is there a minimum of two criteria No selected? Query Text:Check all the applicable criteria. A minimum of two criteria are recommended for diagnosis of either severe or non-severe malnutrition. Intervention/Recommendation Comments 1. Recommend Boost BID to increased nutrition intake. Family would like to try this supplement. RN notified. 2. Monitor PO intake, wt, labs and skin integrity 3. F/U as high risk in 2-3 days, 10/27-10/28 Expected Outcomes/Goals Expected Outcomes/Goals 1. PO intake to meet at least 75% of nutritional needs. 2. Wt stability, skin to remain intact, labs to approach WNL.
[2017-10-30] MEDS: Albuterol/Ipratropium Neb 3 ML AERS HHN SCH ×3 (03:39→12:10)
[2017-10-30 05:51] LABS: ANION GAP 11.8 (7.0-16.0); BUN - UREA NITROGEN 70 mg/dL (7-25); CALCIUM SERUM 10.6 mg/dL (8.6-10.3); CHLORIDE 92 mEq/L (98-107); CREATININE - SERUM 0.7 mg/dL (0.6-1.2); GLUCOSE 117 mg/dL (70-105); POTASSIUM SERUM 3.4 mEq/L (3.5-5.1); SODIUM SERUM 144 mEq/L (136-145)
[2017-10-30 05:59] LABS: CARBON DIOXIDE 43.6 mEq/L (21.0-31.0)
[2017-10-30] MEDS: methylPREDNISolone SS 40 mg Vial IVP SCH ×2 (06:45→12:48)
[2017-10-30] MEDS: cefTRIAXone 1 GM in Sodium Chloride 0.9% 50 ML IV SCH (06:45)
[2017-10-30] MEDS: Nitroglycerin 0.1 mg/hr Tdm TD SCH (08:13)
[2017-10-30] MEDS: Azithromycin 500 MG in Sodium Chloride 0.9% 250 ML IV SCH (08:14)
[2017-10-30] MEDS: Metolazone 5 MG TAB PO SCH (08:15)
[2017-10-30] MEDS: Potassium Chloride 10 mEq ER Tab PO SCH (08:16)
[2017-10-30] MEDS: Multivitamin Tab PO SCH (08:16)
[2017-10-30] MEDS ORDERED: Magnesium Hydroxide (MOM) 30 mL UDC PO PRN (10:31)
[2017-10-30] MEDS ORDERED: Potassium Chloride 10 mEq ER Tab PO ONE (12:00)
[2017-10-30] MEDS: NYSTATIN 100000 UNITS/GM POWD TP SCH (12:48)
[2017-10-30] MEDS ORDERED: Furosemide 40 mg/4mL UDC PO SCH (17:00)
--- NOTE | 2017-11-09 19:22 | Discharge Summary ---
DATE OF DISCHARGE: 10/30/2017 FINAL DIAGNOSES: 1. Acute exacerbation of systolic congestive heart failure. 2. Pneumonia. 3. Acute respiratory failure. 4. Severe mitral valve stenosis. REVIEW OF HISTORY: The patient is an 87-year-old female with long history of cardiomyopathy, systolic congestive heart failure, coronary artery disease, severe mitral stenosis, admitted to [facility] with acute shortness of breath. Initial workup significant for pneumonia, acute exacerbation of systolic congestive heart failure. PHYSICAL EXAMINATION: VITAL SIGNS: Temperature 98, heart rate 88, blood pressure 124/70. CHEST: Diminished breathing sound. HEART: S1, S2 normal. ABDOMEN: Soft, bowel sounds positive. LABORATORY DATA: White blood cell 13.6, hemoglobin 13.3. COURSE OF HOSPITALIZATION: The patient was started on IV fluid, antibiotic, admitted to ICU. During hospitalization, the patient's condition was improving and we tried to transfer the patient to [facility] for evaluation of her mitral stenosis and on 10/27/2017, the patient still has some shortness of breath, no chest pain, no nausea, no vomiting. On 10/28/2017, the patient was feeling better. Chest: Mildly diminished breathing sound. Heart: S1, S2 normal. Abdomen: Soft, bowel sounds positive. On 10/29/2017, the [facility] they declined the case. On 10/30/2017, the patient was feeling better. Chest: Good entry of air. Heart: S1, S2 normal. Abdomen: Soft, bowel sounds positive. DISPOSITION: The patient transferred back to [facility] to continue on her medication and diet. CONDITION ON DISCHARGE: Stable. MEDICATIONS: Follow discharge reconciliation. [facility]# [id number]
== END 2017-10-30 13:15 | disposition home or self-care (01) | DRG 291 ==
LOC: ER 02:37 → ICU 15:10
PROVIDERS: ADMIT Family Medicine; ATTEND Family Medicine
PROC: 5A09357 Assistance with Respiratory Ventilation, Less than 24 Consecutive Hours, Continuous Positive Airway Pressure (ICD-10-PCS; principal; 2017-10-24)
DX: I11.0 Hypertensive heart disease with heart failure (principal); J18.9 Pneumonia, unspecified organism; J96.01 Acute respiratory failure with hypoxia; I38 Endocarditis, valve unspecified; I48.0 Paroxysmal atrial fibrillation; J44.0 Chronic obstructive pulmonary disease with (acute) lower respiratory infection; I27.20 Pulmonary hypertension, unspecified; I50.33 Acute on chronic diastolic (congestive) heart failure; T45.515A Adverse effect of anticoagulants, initial encounter; Y92.89 Other specified places as the place of occurrence of the external cause; Z88.8 Allergy status to other drugs, medicaments and biological substances; Z95.2 Presence of prosthetic heart valve
CPT/HCPCS: 36415-UA; 36600-90; 71045-TC; 71250-TC; 80048-TC; 80053-TC; 81001-TC; 82803-TC; 83036-90; 83605; 83880-TC; 84484-TC; 85007-TC; 85027-TC; 85610-TC; 90779; 93005; 94640; 94660; J0456; J0696; J1940; J2920; Z7610